=== PATIENT | male | born 1960 | race Caucasian/White ===

== ENCOUNTER → 2016-11-03 | Outpatient (CLI) | payer BC ==
[~2016-11-03] MED LIST: METH10TA2 PO
--- NOTE | 2016-11-03 15:41 | CARD ---
APPROVED REPORT EXAM: Two-dimensional and M-mode echocardiogram with Doppler and color Doppler. Other Information Quality : GoodHR: 67bpm Rhythm : NSR INDICATION HTN 2D DIMENSIONS RVDd3.2 (2.9-3.5cm)Left Atrium(2D)3.0 (1.6-4.0cm) IVSd1.0 (0.7-1.1cm)Aortic Root(2D)1.7 (2.0-3.7cm) LVDd5.0 (3.9-5.9cm)LVOT Diameter2.3 (1.8-2.4cm) PWd0.8 (0.7-1.1cm)LVDs4.0 (2.5-4.0cm) FS (%) 19.7 %SV47.9 ml LVEF(%)40.2 (>50%) Aortic Valve AoV Peak Everardo.89.2cm/sAoV VTI18.0cm AO Peak GR.3.2mmHgLVOT Peak Everardo.81.1cm/s AO Mean GR.2mmHgAVA (VMAX)3.77cm2 Mitral Valve MV E Rkjlqqab72.1cm/sMV E Peak Gr.3mmHg MV DECEL [id number] A Kvqhzgyv86.9cm/s MV E Mean Gr.1mmHgE/A Ratio0.9 MV A Tzmwrcii05mr Pulmonary Valve PV Peak Kgrqhola95.6cm/s Pulmonary Vein S1 Aujcjyxx39.2cm/sD2 Feavnorp88.0cm/s PVa ftonnqfr40kpvk LEFT VENTRICLE The left ventricle is normal size. There is normal left ventricular wall thickness. Left ventricle sy stolic function is mildly impaired. The Ejection Fraction is 45-50%. There is mild hypokinesis of the left ventricle. Mild hypokinesis of the proximal through mid anteroseptal and anterior kruse. Transm itral Doppler flow pattern is Grade I-abnormal relaxation pattern. No left ventricle thrombus noted o n this study. RIGHT VENTRICLE The right ventricle is normal size. There is normal right ventricular wall thickness. The right ventr icular systolic function is normal. ATRIA The left atrium size is normal. The right atrium size is normal. The interatrial septum is intact wit h no evidence for an atrial septal defect or patent foramen ovale as noted on 2-D or Doppler imaging. AORTIC VALVE The aortic valve is mildly thickened. The aortic valve is trileaflet. Doppler and Color Flow revealed no significant aortic regurgitation. There is no significant aortic valvular stenosis. MITRAL VALVE The mitral valve leaflets are thickened. There is no evidence of mitral valve prolapse. There is no m itral valve stenosis. Doppler and Color Flow revealed trace mitral regurgitation. TRICUSPID VALVE Doppler and Color Flow revealed no tricuspid valve regurgitation noted. There is no pulmonary hyperte nsion. PULMONIC VALVE Doppler and Color Flow revealed no pulmonic valvular regurgitation. There is no pulmonic valvular rehan nosis. GREAT VESSELS The aortic root is normal in size. The ascending aorta is normal in size. The pulmonary artery is nor mal. The IVC is normal in size and collapses >50% with inspiration. PERICARDIAL EFFUSION There is no evidence of significant pericardial effusion. Critical Notification Critical Value: No <Conclusion> Left ventricle systolic function is mildly impaired. The Ejection Fraction is 45-50%. There is mild hypokinesis of the left ventricle. Mild hypokinesis of the proximal through mid anteros eptal and anterior kruse. Due to mild LV dysfunction and wall motion abnormalities, stress testing was deferred. Recommend foll ow up with referring provider and consider cardiology referral.
== END | disposition home or self-care (01) ==
LOC: ECHO 13:07
PROVIDERS: ATTEND Family Medicine
DX: I10 Essential (primary) hypertension (principal); I34.0 Nonrheumatic mitral (valve) insufficiency
CPT/HCPCS: 93306

== ENCOUNTER 2016-11-08 16:15 | Inpatient (IN) | payer BC ==
[~2016-11-08] VITALS: Ht 167.6 cm; Wt 85.0 kg
[2016-11-08 19:35] VITALS: BP 124/77
[2016-11-08 22:12] LABS: BASO % 0 % (0-3); EOS % 4 % (0-3); HEMATOCRIT 41.1 % (39.0-53.0); HEMOGLOBIN 14.3 g/dL (13.0-17.5); LYMPH # 3.1 x10^3/uL (1.0-4.8); LYMPH % 38 % (24-48); MEAN CORPUSCULAR HEMOGLOBIN 31 pg (25-35); MEAN CORPUSCULAR HGB CONC 35 g/dL (31-37); MEAN CORPUSCULAR VOLUME 89 fL (79-100); MONO % 13 % (0-9); NEUT % 45 % (31-73); PLATELET COUNT 164 x10^3/uL (140-400); RED BLOOD COUNT 4.64 x10^6/uL (4.30-5.70); WHITE BLOOD COUNT 8.1 x10^3/uL (4.0-11.0)
[2016-11-08 22:29] LABS: ALBUMIN 3.3 g/dL (3.4-5.0); ALBUMIN/GLOBULIN RATIO 0.9 (1.0-1.7); CALCIUM 8.7 mg/dL (8.5-10.1); CREATININE 0.8 mg/dL (0.7-1.3); TOTAL BILIRUBIN 0.3 mg/dL (0.2-1.0); TOTAL PROTEIN 6.8 g/dL (6.4-8.2)
[2016-11-08 23:35] VITALS: BP 134/78
--- NOTE | 2016-11-09 01:38 | HP ---
ADMIT DATE: 11/08/2016 HISTORY OF PRESENT ILLNESS: This is a 56-year-old white male who was referred by Dr. Caballero who is his primary care physician. This patient is somewhat difficult historian. He did give his history predominantly, but this was also supplemented by his . However, this was punctuated by his concern that a heart problem may be formed and that he may not be able to return to work. He was also very concerned that whereas people for example his friends have been able to obtain disability for knee pain, but others have not been able to obtain disability for a heart problem. In any case, what he wanted to tell me was that he would get a sudden onset of severe pain in his abdomen. He pointed out his abdomen. He then would have an urge to defecate. He would go to the restroom. He would become diaphoretic. The pain at times would shift to the chest and when he became diaphoretic and the pain went to his chest, he had significant morbid fear of dying. He kept saying "I felt as though I was going to " . When I asked to explain it further, he was somewhat embarrassed that he was not able to truly explain what it is that you felt that he is going to . He complained of no shortness of breath or dizziness at that time. He simply was afraid of defecating because he felt this may lead to and this happened at least twice and the last one was a few days ago. He was then sent for a stress echo. The stress echo was not performed. An echocardiogram was performed and read by Dr. Keene. It was reported as showing mild hypokinesis of the proximal through mid anteroseptal and anterior kruse. The ejection fraction was 45-50%. Because of the significant already present wall motion abnormalities, a stress echo was not performed and the patient was referred back to his PCP who then referred the patient to me. He gives no history of hypertension or diabetes mellitus. He is not aware of elevated cholesterol. He has never smoked. He has been subjected to some secondary smoke. He is also very concerned that he has sudden onset of severe diaphoresis during which time he feels poorly. The last such episode was this morning. He does not think exertion brings on these symptoms. He does complain of retrosternal burning, which he attributes to GERD. He also has chest discomfort when doing some hard tasks such as working on a car. FAMILY HISTORY: Father at the age of 83. Mother of carcinoma. He has 2 brothers and one sister. One brother has cirrhosis of the liver. The only medication he takes is methadone. PHYSICAL EXAMINATION: GENERAL: He was alert, awake, and in no distress. VITAL SIGNS: He weighed 190 pounds. The heart rate was 80 per minute and regular. The blood pressure was 120/80. LUNGS: Clear. HEART: The heart sounds are normal with no murmur or gallop. ABDOMEN: Soft. EXTREMITIES: The carotids are palpable with no bruits. The distal pulses are palpable in the right leg, but not in the left. He states that he does have some claudication of the left leg. IMPRESSION: 1. Abdominal pain and chest pain associated with diaphoresis and a feeling of impending doom, rule out acute coronary syndrome. 2. Intermittent diaphoresis. 3. Peripheral vascular disease with possible claudication of the left leg. Since this patient has such significant symptoms that he has a very heightened sense of impending doom and since he had an episode of diaphoresis this morning, I thought that it would be better to hospitalize him and investigate him for underlying coronary artery disease and treat it. He states that a friend recently very suddenly of a myocardial infarction. We will thus do a myocardial perfusion imaging study tomorrow. CLEO GARCIA MD DR: CELIO/neha JOB#: [id number] / [id number]
--- NOTE | 2016-11-09 01:56 | ACF ---
Admit Criteria Forms Admit Criteria Forms Admit Criteria Forms CHEST PAIN Clinical Indications for Admission to Inpatient Care (Place 'X' for any and all applicable criteria): Admission is indicated for chest pain and ANY ONE of the following(1)(2)(3)(4)(5 ): [X ]I. Angina with acute coronary syndrome (Also use Myocardial Infarction or Angina guideline) [ ]II. Hemodynamic instability [ ]III. Angina needing acute intervention as indicated by ALL of the following( 11)(12): [ ]a) Unstable angina is present as indicated by angina that is ANY ONE of the following: [ ]i) New onset [ ]ii) Nocturnal [ ]iii) Prolonged at rest [ ]iv) Progressive [ ]b) Angina warrants acute intervention as indicated by ANY ONE of the following: [ ]i) Recurrent angina (e.g, not responding as previously to treatment) [ ]ii) Angina at rest or with low-level activities despite initial medical therapy [ ]iii) New or presumably new ST-segment depression on ECG [ ]iv) Signs or symptoms of heart failure (eg, dyspnea, pulmonary edema) [ ]v) New or worsening mitral regurgitation [ ]vi) Hemodynamic instability [ ]vii) Dangerous arrhythmia (eg, sustained ventricular tachycardia) [ ]viii) History of percutaneous coronary intervention within 6 months [ ]ix) History of coronary artery bypass graft surgery [ ]x) ADELINA risk score of 2 or greater[A] [ ]xi) History of Diabetes(14) [ ]xii) High-risk cardiac ischemia findings on noninvasive testing (e.g, echocardiogram, treadmill testing, nuclear scan) [ ]xiii) Chronic renal insufficiency (ie, estimated GFR less than 60 mL/min/1.732m) [ ]xiv) Left ventricular ejection fraction less than 40% [ ]IV. Evidence of MO (eg, cardiac biomarkers positive, ST-segment elevation on ECG) also use Myocardial Infarction Criteria Form. [ ]V. Pulmonary edema [ ]. Respiratory distress [ ]VII. Chest pain indicative of serious diagnosis other than coronary artery disease (eg, aortic dissection) [ ]VIII. Contraindications and/or Inappropriate clinical situations for Observational Care in patients with Chest Pain, when ANY ONE of the following is required: [ ]a) Patient with risk factor for pulmonary embolism, acute coronary syndrome and myocardial infarction (18) [ ]b) Patient with Pulmonary embolism require an average LOS of 4.3 days, therefore emergency department observation management is inappropriate 18,23 [ ]c) Painful condition/s in the elderly, have the highest rate of recidivism after emergency department observation management (10.8%) 20,21,22 [ ]d) Elevated cardiac biomarker requires intensive and exhaustive care (19) [ ]IX. General contraindications and/or Inappropriate clinical situations for Observational Care in patients with Chest Pain, when ANY ONE of the following is required: [ ]a) Prediction of prolongation of LOS based on ANY ONE of the following may be considered as a contraindication for observational care 2, 3, 4, 5, 6, 7, 8, 9, 10, 11 [ ]i) Age > 65 yrs. [ ]ii) Patient arriving by ambulance [ ]iii) Patient with high acuity [ ]iv) Patient requiring vital sign monitoring [ ]v) Patient on IV medication [ ]b) Systolic blood pressures 180mmHg 3,12 [ ]c) Patient with altered mental status including delirium and other alteration of consciousness, (3) [ ]d) Patient whose discharge disposition will be to a senior living home or rehabilitation home should not be managed in Emergency Department Observation Unit. CMS rule requires 3 days hospital stay before such placement. 3,13 [ ]e) Patient with failure to thrive due to broad array of etiologies 3,16,17 [ ]f) Inability to ambulate 3,14 Extended stay beyond goal length of stay may be needed for (1)(28): [ ]a) Specific condition diagnosed after evaluation (eg, pulmonary embolism, aortic dissection) [ ]b) Unstable angina [ ]c) Continued suspicion of acute coronary syndrome with inability to complete needed cardiac evaluation (eg, patient clinically unable to undergo stress testing) [ ]d) Myocardial infarction (Contents from ANGINA and CHEST PAIN clinical indications for admission to inpatient care have been integrated in this form) The original [employer] content created by [employer] has been revised. The portions of the content which have been revised are identified through the use of italic text or in bold, and [facility] has neither reviewed nor approved the modified material. All other unmodified content is copyright [employer]. Please see references footnoted in the original [facility] edition 2016 MANE DAVIS November 09, 2016 01:56
[2016-11-09 03:20] VITALS: BP 109/73
[2016-11-09 07:00] VITALS: BP 118/76
[2016-11-09 07:12] LABS: CHOLESTEROL/HDL RATIO 2.6
[2016-11-09] MEDS ORDERED: METH10TA2 PO (07:31)
[2016-11-09] MEDS ORDERED: REGADENOSON 0.4 MG/5 ML DISP.SYRIN. IV ONE (08:00)
--- NOTE | 2016-11-09 09:27 | RAD ---
Indication chest pain. PA and lateral views of the chest were obtained. No prior imaging is available. The heart and pulmonary vessels appear normal. The lungs are clear. There is no pleural fluid or pneumothorax. IMPRESSION: No acute finding in the chest
--- NOTE | 2016-11-09 10:40 | EKG ---
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
[2016-11-09] MEDS: IOHEXOL 300 MG/ML 75 ML VIAL IV ONE ×2 (13:00→15:15)
[2016-11-09] MEDS ORDERED: CONTRAST GIVEN MC PRN (13:00)
[2016-11-09] MEDS: IOHEXOL 240 MG/ML 50ML VIAL. PO ONE ×2 (13:00→14:15)
--- NOTE | 2016-11-09 14:42 | RAD ---
Indication claudication. Grayscale color Doppler and spectral imaging was performed. The examination was targeted to the major arteries of the lower extremities. On the right there is a normal triphasic waveform associated with the common femoral artery. Similar waveform is seen in the deep femoral. There is a normal triphasic waveform seen throughout the course of the superficial femoral artery which continues on into the popliteal artery. The posterior tibial artery proximally and distally has a normal triphasic waveform. The peroneal also is triphasic. The anterior tibial and dorsal pedal arteries are both triphasic. On the left there is a normal triphasic waveform associated with the common femoral artery with a similar waveform in the deep femoral. Normal triphasic waveform is seen throughout the course of the superficial femoral artery continuing on into the popliteal artery. Posterior tibial artery proximally and distally is triphasic. The peroneal also is triphasic. The anterior tibial and dorsal pedal arteries are both triphasic. IMPRESSION: No evidence of hemodynamically significant stenosis seen involving the major arteries of either lower extremity
[2016-11-09 15:00] VITALS: BP 119/79
--- NOTE | 2016-11-09 16:11 | RAD ---
CT abdomen and pelvis with IV contrast History: Severe abdominal pain, diaphoresis. Comparison: None. Technique: After administration of oral and intravenous contrast, 75 mL Omnipaque 300, helical CT of the abdomen and pelvis was performed from the lung bases through the ischial tuberosities. Axial, sagittal, and coronal reconstructions were obtained. One or more of the following individualized dose reduction techniques were utilized for the study: Automated exposure control Adjustment of mA and/or kV according to patient's size Use of iterative reconstruction technique. Findings: Liver, spleen, pancreas, gallbladder, and bilateral adrenal glands are unremarkable. Bilateral kidneys enhance symmetrically. There is no evidence of bowel obstruction. No free air or free fluid is identified in the abdomen or pelvis. Appendix appears within normal limits. Urinary bladder is unremarkable. Left femoral fixation hardware is incompletely seen. Impression: No acute abnormality identified in the abdomen or pelvis.
--- NOTE | 2016-11-09 18:55 | RAD ---
APPROVED REPORT Test Type: Pharmacological Stress Nurse/Tech: Nicky Patrick R.N. Test Indications: Chest pain. Cardiac History: Pt states that he has had two episodes of near syncope with diaphoresis, nausea wi thin the past few months. Medications: SEE EMR Medical History: SEE EMR Resting ECG: SR Resting Heart Rate: 71 bpm Resting Blood Pressure: 114/76mmHg Pretest Chest Pain: None Nurse/Tech Notes S1S2, lungs CTA, diminished in RUL, denied chest pain and SOA. Consent: The procedure was explained to the patient in lay terms. Informed consent was witnessed. Thang eout was entered into [employer]. History and Stress Test performed by Nicky Patrick R.N. Pharm. Details Pharmacologic stress testing was performed using 0.4mg per 5ml of regadenoson given intravenously ove r 7-10 seconds. Stress Symptoms Slightly SOA. POST EXERCISE Reason for Termination: Infusion complete Max HR: 103 bpm Max Blood Pressure: 123/59mmHg Blood Pressure response to exercise: Normal blood pressure response during stress. Heart Rate response to exercise: Normal Chest Pain: No. Arrhythmia: Yes. Multiple PAC's. ST Change: No. INTERPRETATION Stress EKG Conclusion: No acute changes were noted. Imaging Protocol IMAGE PROTOCOL: Rest Tc-99m/stress Tc-99m 1 day Rest: Stress: Viability: Radiopharm.Tc99m NshpkfsxfZb34s Sestamibi Rxns85gNx 31mCi Duration 15min. 12min. Img Date 11/09/2016 11/09/2016 Inj-Img Vscd84gnr. 60min. Rest Admin Site:IV - Left ForearmAdministrator:SANTIAGO Nunez, ARRT (R)(N) Stress Admin Site: IV - Left ForearmAdministrator: Von Adams, RT (R)(N) STRESS DATA End Diast. Vol.94.0mlAv. Heart Rate77.0bpm End Syst. Vol.45.0mlCO Index BSA0.0L/min Myocardial Ueov569.0gEject. Bfrsorib00.0% Stress Rates Pk. Fill Rate2.96EDV/secLVtime Pk. Fill 219.03msec Pk. Empty Rate3.54ESV/secLVtime Pk. Uygar533.67msec 06/14 Pk. Fill0.45EDV/sec Stress Scores Regional WT0.00Summed WT8.00 Regional WM0.00Summed WM6.00 LV Perf. Quant 17 Seg. SSS2.00 17 Seg. SRS0.00 17 Seg. SDS2.00 Stress Defect Extent (% LAD)0.00Rest Defect Extent (% LAD)0.00Rev. Defect Extent (% LAD)0.00 Stress Defect Extent (% LCX) 10.00Rest Defect Extent (% LCX)0.00Rev. Defect Extent (% LCX)10.00 Stress Defect Extent (% RCA)0.00Rest Defect Extent (% RCA)0.00Rev. Defect Extent (% RCA)0.00 Stress Defect Extent (% ASHLEY)2.60Rest Defect Extent (% ASHLEY)0.00Rev. Defect Extent (% ASHLEY)2.60 Conclusion 1. No electrocardiographic changes suggestive of myocardial ischemia with pharmacological stress 2. No perfusion defects to suggest myocardial ischemia or scar 3. Normal wall motion and wall thickening with an ejection fraction of 52$. 4. Scan indicates low risk for future carddiac events
[2016-11-09 20:00] VITALS: BP 127/76
--- NOTE | 2016-11-09 20:37 | PDOC ---
Provider Note Provider Note No further CP or diaphoresis. Because of his profound symptoms and abormal ECHO advised coronary arteriograms CLEO GARCIA MD November 09, 2016 20:37
[2016-11-09 22:21] VITALS: BP 118/73
[2016-11-10] MEDS ORDERED: oxyCODONE IR 5 MG TABLET PO PRN (01:00)
[2016-11-10] MEDS: METHADONE 10 MG TABLET. PO SCH ×2 (01:05→09:43)
[2016-11-10 03:11] VITALS: BP 114/76
[2016-11-10] MEDS ORDERED: HEPARIN for IV BOLUS 10,000 UNIT/10 ML VIAL. IART ONE (08:00)
[2016-11-10] MEDS ORDERED: NITROGLYCERIN 200 MCG/2 ML SYRINGE FOR CATH/VASC LAB. IART ONE (08:00)
[2016-11-10] MEDS ORDERED: MIDAZOLAM HCL/PF 2 MG/2 ML VIAL. IV ONE (08:00)
[2016-11-10] MEDS ORDERED: VERAPAMIL 5 MG/2 ML VIAL. IART ONE (08:00)
[2016-11-10] MEDS ORDERED: fentaNYL PF VIAL 100 MCG/2 ML VIAL IV ONE (08:00)
[2016-11-10] MEDS ORDERED: IOHEXOL 300 MG/ML 100ML VIAL. IART ONE (08:00)
[2016-11-10] MEDS ORDERED: LIDOCAINE 2% 20 ML VIAL. IJ ONE (08:00)
[2016-11-10] MEDS ORDERED: CONTRAST GIVEN MC PRN (08:15)
[2016-11-10] MEDS ORDERED: IOHEXOL 300 MG/ML 100ML VIAL. ONE (08:25)
[2016-11-10] MEDS ORDERED: HEPARIN for ARTERIAL LINE 1,500 ML ONE (08:25)
[2016-11-10] MEDS ORDERED: LIDOCAINE 2% 20 ML VIAL. ONE (08:25)
[2016-11-10 09:00] VITALS: BP 121/73
--- NOTE | 2016-11-10 09:32 | CARD ---
APPROVED REPORT Procedure(s) performed: Left heart cath, Coronary angiography, Left ventriculogram. HISTORY The patient is a 56 year-old male with a history of : hypertension. INDICATION The indication(s) include : chest pain, dyspnea, Patient is a 56 y.o male with mild LV dysfunction on echo who underwent a stress MPI which did not show any significant ischemia. Due to persistent chest pain, nausea and diaphoresis and risk factors, a cardiac catheterization was performed to definitely rule out coronary disease. . PROCEDURE NARRATIVE The patient was brought electively to the cardiac catheterization lab. A timeout was performed confi rming the patient's name, date of , procedure, and site of procedure. All necessary personnel w ere wearing the appropriate protective equipment and radiation monitor devices. After explaining the risks and benefits of the procedure and alternatives, informed consent was obtained. (See nursing no bronson for medications administered). The right wrist was sterilely prepped and draped in the usual fas hion. The right wrist was infiltrated with 1 mL of 2% lidocaine for subcutaneous anesthesia. A 6 Fr ench Terumo glide sheath was inserted into the right radial artery without difficulty. Right and lef t coronary angiography was performed using a 6Fr TIG 4.0 catheter. Left ventricular end diastolic pr essure was obtained with a pigtail catheter and pullback was performed after left ventriculography. All catheter exchanges and advancements were performed over a guidewire. At case completion the righ t radial sheath was removed and a Terumo radial band was applied with 13 ml of air. The patient tole rated the procedure well and there were no immediate complications. HEMODYNAMICS: LVEDP 8 mm Hg No gradient on LV to aortic pullback. LEFT VENTRICULOGRAM: EF 55% Anterobasal: Normal. Anterolateral: Normal Apical: Normal Diaphragmatic: Normal Posterobasal: Normal *No significant mitral regurgitation. CORONARY ANGIOGRAPHY: LM is a large caliber vessel with normal angiographic appearance. LAD is a large caliber vessel with a proximal 20-30% stenosis. Ramus is a moderate caliber vessel with normal angiographic appearance. LCx is a moderate caliber non-dominant vessel with normal angiographic appearance. OM1 is a moderate caliber vessel with normal angiographic appearance. RCA is a large caliber dominant vessel with normal angiographic appearance. RPDA and RPL are moderate caliber vessels with normal angiographic appearance. Conclusion 1. Minimal non-obstructive coronary disease. 2. Normal LV function. EF 55% 3. Normal filling pressures. Recommendations Aggressive Medical Therapy
[2016-11-10 11:00] VITALS: BP 117/76
--- NOTE | 2016-11-11 03:52 | DS ---
DATE OF DISCHARGE: 11/10/2016 HOSPITAL COURSE: This is a 56-year-old white male who was seen in the office, referred by Dr. Caballero. He was very concerned because he was having episodes of abdominal pain and chest pain and feeling as though he is going to . He would also become diaphoretic. He had become diaphoretic that morning. He had had echocardiogram done the previous week, which reported wall motion abnormalities in the anterior wall and septum. A stress echo that had been originally scheduled was cancelled. When I saw him in the office, he was very worried about the fact that he becomes diaphoretic and feels as though he is going to . Because of the wall motion abnormalities ____ proximal LAD obstruction, which is called the ____ he was hospitalized. He underwent myocardial perfusion imaging study the next day. The EKG was normal. The imaging showed no evidence of perfusion defects. Laboratory investigations: The hemoglobin was 14.3. Sodium 141, potassium 4, BUN 16, creatinine 0.8. The serial enzymes were negative. The total cholesterol was 142, triglycerides 60, LDL cholesterol 76 and HDL cholesterol was 54. His amylase was 31 and lipase was 112. Thus, his lipid profiles were normal. The situation was discussed with the patient and his . There was a discrepancy between the findings on the echocardiogram and the MPI. The patient was very, very concerned that he might have heart problem and that he could . Because of this, coronary arteriograms were scheduled and performed on the morning of 11/10. The coronary arteries were normal. The patient was very happy. I informed him most of the findings. He was discharged. He will follow up with his primary care physician, Dr. Caballero. No prescriptions were given. CLEO GARCIA MD DR: CELIO/neha JOB#: [id number] / [id number]
== END 2016-11-10 13:15 | disposition home or self-care (01) | DRG 287 ==
LOC: 2 SOUTH 19:15
PROVIDERS: ADMIT Specialist; ATTEND Specialist
PROC: 4A023N7 Measurement of Cardiac Sampling and Pressure, Left Heart, Percutaneous Approach (ICD-10-PCS; principal; 2016-11-10)
PROC: B2111ZZ Fluoroscopy of Multiple Coronary Arteries using Low Osmolar Contrast (ICD-10-PCS; 2016-11-10)
PROC: B2151ZZ Fluoroscopy of Left Heart using Low Osmolar Contrast (ICD-10-PCS; 2016-11-10)
DX: R07.9 Chest pain, unspecified (principal); K21.9 Gastro-esophageal reflux disease without esophagitis; R10.9 Unspecified abdominal pain; I73.9 Peripheral vascular disease, unspecified; Z80.9 Family history of malignant neoplasm, unspecified; Z84.89 Family history of other specified conditions
CPT/HCPCS: 36415; 71020; 74177; 78452; 80053; 80061; 82150; 83690; 84484; 85027; 93005; 93017; 93458; 93925; 96374; 96375; 96376; A9500; C1769; C1892; J2250; J2785; J3010; J3490; Q9966; Q9967

== ENCOUNTER 2018-09-29 23:05 | Emergency (ER) | payer BC ==
[~2018-09-29] VITALS: Ht 167.6 cm; Wt 86.2 kg
--- NOTE | 2018-09-29 23:29 | PHYS DOC ---
Adult General Chief Complaint Chief Complaint: ABDOMINAL PAIN HPI HPI Patient is a 58-year-old male who presents with complaint of severe epigastric/ lower chest wall pain that started approximately 2 hours prior to his arrival. He states this is absolutely the worst pain that he has ever had in his life, rating it at a 10 out of 10. Patient states that he is on both methadone and Percocet for chronic pain. He does admit to chronic constipation. Patient states that it feels like his chest is being ripped out. He denies any vomiting or diarrhea. He does admit to some nausea however. He denies any diaphoresis. He also denies any fever or cough. Patient states that nothing improves his symptoms. Review of Systems Review of Systems Constitutional: Denies fever or chills [] Respiratory: Denies cough or shortness of breath [] Cardiovascular: No additional information not addressed in HPI [] GI: Complains of epigastric abdominal pain with nausea. Denies vomiting or diarrhea [] Musculoskeletal: Denies back pain or joint pain [] All other systems were reviewed and found to be within normal limits, except as documented in this note. Current Medications Current Medications Current Medications Medications (Trade) Dose Ordered Sig/Misty Start Time Stop Time Status Last Admin Dose Admin Info (CONTRAST GIVEN -- Rx MONITORING) 1 each PRN DAILY PRN 09/30/18 00:45 10/02/18 00:44 Iohexol (Omnipaque 300 Mg/ml) 75 ml 1X ONCE 09/30/18 00:45 09/30/18 00:46 DC 09/30/18 00:50 75 ML Ketorolac Tromethamine (Toradol 30mg Vial) 30 mg 1X ONCE 09/29/18 23:45 09/29/18 23:46 DC 09/29/18 23:45 30 MG Ondansetron HCl (Zofran) 4 mg 1X ONCE 09/29/18 23:45 09/29/18 23:46 DC 09/29/18 23:45 4 MG Sodium Chloride 1,000 ml @ 1,000 mls/hr Q1H 09/29/18 23:45 09/30/18 00:44 DC 09/29/18 23:46 1,000 MLS/HR Allergies Allergies Allergies Coded Allergies Type Severity Reaction Last Updated Verified Penicillins Allergy Intermediate 11/09/16 Yes Physical Exam Physical Exam Constitutional: Well developed, well nourished, no acute distress, non-toxic appearance. [] HENT: Normocephalic, atraumatic, bilateral external ears normal, oropharynx moist, no oral exudates, nose normal. [] Eyes: PERRLA, EOMI, conjunctiva normal, no discharge. [] Neck: Normal range of motion, no tenderness, supple, no stridor. [] Cardiovascular: Regular rate and rhythm. There is reproducible lower chest wall tenderness around the lower anterior rib margins, bilaterally.[] Lungs & Thorax: Bilateral breath sounds clear to auscultation [] Abdomen: Bowel sounds normal, soft, with epigastric tenderness to palpation. [] Skin: Warm, dry, no erythema, no rash. [] Extremities: No tenderness, no cyanosis, no clubbing, ROM intact. [] Neurologic: Alert and oriented X 3, no focal deficits noted. [] Current Patient Data Vital Signs Vital Signs Date Time Temp Pulse Resp B/P (MAP) Pulse Ox O2 Delivery O2 Flow Rate FiO2 09/30/18 02:04 56 137/69 (91) 100 Room Air 09/29/18 23:12 98.2 20 98.2 Lab Values Laboratory Tests Test 09/29/18 23:25 09/30/18 00:05 White Blood Count 8.2 x10^3/uL (4.0-11.0) Red Blood Count 4.56 x10^6/uL (4.30-5.70) Hemoglobin 13.8 g/dL (13.0-17.5) Hematocrit 40.1 % (39.0-53.0) Mean Corpuscular Volume 88 fL (79-100) Mean Corpuscular Hemoglobin 30 pg (25-35) Mean Corpuscular Hemoglobin Concent 34 g/dL (31-37) Red Cell Distribution Width 12.9 % (11.5-14.5) Platelet Count 181 x10^3/uL (140-400) Neutrophils (%) (Auto) 48 % (31-73) Lymphocytes (%) (Auto) 35 % (24-48) Monocytes (%) (Auto) 14 % (0-9) H Eosinophils (%) (Auto) 2 % (0-3) Basophils (%) (Auto) 0 % (0-3) Neutrophils # (Auto) 3.9 x10^3uL (1.8-7.7) Lymphocytes # (Auto) 2.9 x10^3/uL (1.0-4.8) Monocytes # (Auto) 1.2 x10^3/uL (0.0-1.1) H Eosinophils # (Auto) 0.2 x10^3/uL (0.0-0.7) Basophils # (Auto) 0.0 x10^3/uL (0.0-0.2) Sodium Level 137 mmol/L (136-145) Potassium Level 3.5 mmol/L (3.5-5.1) Chloride Level 99 mmol/L (98-107) Carbon Dioxide Level 28 mmol/L (21-32) Anion Gap 10 (6-14) Blood Urea Nitrogen 16 mg/dL (8-26) Creatinine 0.9 mg/dL (0.7-1.3) Estimated GFR (Cockcroft-Gault) 86.7 BUN/Creatinine Ratio 18 (6-20) Glucose Level 138 mg/dL (70-99) H Calcium Level 9.3 mg/dL (8.5-10.1) Total Bilirubin 0.5 mg/dL (0.2-1.0) Aspartate Amino Transferase (AST) 35 U/L (15-37) Alanine Aminotransferase (ALT) 48 U/L (16-63) Alkaline Phosphatase 60 U/L (46-116) Troponin I Quantitative < 0.017 ng/mL (0.000-0.055) Total Protein 7.4 g/dL (6.4-8.2) Albumin 3.7 g/dL (3.4-5.0) Albumin/Globulin Ratio 1.0 (1.0-1.7) Lipase 156 U/L (73-393) Urine Collection Type Unknown Urine Color Yellow Urine Clarity Cloudy Urine pH 7.5 Urine Specific [place] 1.020 Urine Protein Negative mg/dL (NEG-TRACE) Urine Glucose (UA) Negative mg/dL (NEG) Urine Ketones (Stick) Negative mg/dL (NEG) Urine Blood Negative (NEG) Urine Nitrite Negative (NEG) Urine Bilirubin Negative (NEG) Urine Urobilinogen Dipstick 1.0 mg/dL (0.2 mg/dL) Urine Leukocyte Esterase Negative (NEG) Urine RBC Occ /HPF (0-2) Urine WBC 0 /HPF (0-4) Urine Squamous Epithelial Cells Occ /LPF Urine Amorphous Sediment Present /HPF Urine Bacteria 0 /HPF (0-FEW) Urine Mucus Slight /LPF Urine Opiates Screen Neg (NEG) Urine Methadone Screen Pos (NEG) Urine Barbiturates Neg (NEG) Urine Phencyclidine Screen Neg (NEG) Urine Amphetamine/Methamphetamine Neg (NEG) Urine Benzodiazepines Screen Neg (NEG) Urine Cocaine Screen Neg (NEG) Urine Cannabinoids Screen Neg (NEG) Urine Ethyl Alcohol Neg (NEG) Laboratory Tests 09/29/18 23:25 Laboratory Tests 09/29/18 23:25 EKG EKG [] Interpretation Time: EKG demonstrates sinus rhythm with rate of 59. There are no significant ST segment abnormalities. Radiology/Procedures Radiology/Procedures [] Course & Med Decision Making Course & Med Decision Making Pertinent Labs and Imaging studies reviewed. (See chart for details) [] Dragon Disclaimer Dragon Disclaimer This electronic medical record was generated, in whole or in part, using a voice recognition dictation system. Departure Departure Impression: Primary Impression: Epigastric abdominal pain Disposition: HOME, SELF-CARE Condition: STABLE Referrals: DENIS LOPEZ MD (PCP) Patient Instructions: Abdominal Pain RAQUEL LIN Jr. DO Sep 29, 2018 23:29
[2018-09-29 23:33] LABS: BASO % 0 % (0-3); EOS # 0.2 x10^3/uL (0.0-0.7); EOS % 2 % (0-3); HEMATOCRIT 40.1 % (39.0-53.0); HEMOGLOBIN 13.8 g/dL (13.0-17.5); LYMPH # 2.9 x10^3/uL (1.0-4.8); LYMPH % 35 % (24-48); MEAN CORPUSCULAR HEMOGLOBIN 30 pg (25-35); MEAN CORPUSCULAR HGB CONC 34 g/dL (31-37); MEAN CORPUSCULAR VOLUME 88 fL (79-100); MONO # 1.2 x10^3/uL (0.0-1.1); MONO % 14 % (0-9); NEUT # 3.9 x10^3uL (1.8-7.7); NEUT % 48 % (31-73); PLATELET COUNT 181 x10^3/uL (140-400); RED BLOOD COUNT 4.56 x10^6/uL (4.30-5.70); RED CELL DISTRIBUTION WIDTH 12.9 % (11.5-14.5); WHITE BLOOD COUNT 8.2 x10^3/uL (4.0-11.0)
[2018-09-29 23:44] LABS: CALCIUM 9.3 mg/dL (8.5-10.1); CREATININE 0.9 mg/dL (0.7-1.3); GFR 86.7; POTASSIUM 3.5 mmol/L (3.5-5.1)
[2018-09-29] MEDS ORDERED: IV NORMAL SALINE 1000ML BAG 1,000 ML IV SCH (23:45)
[2018-09-29] MEDS ORDERED: KETOROLAC 30 MG/ML VIAL. IV ONE (23:45)
[2018-09-29] MEDS ORDERED: ONDANSETRON PF 4 MG/2 ML VIAL. IV ONE (23:45)
[2018-09-29 23:53] LABS: ALBUMIN 3.7 g/dL (3.4-5.0); TOTAL BILIRUBIN 0.5 mg/dL (0.2-1.0); TOTAL PROTEIN 7.4 g/dL (6.4-8.2)
[2018-09-30 00:12] LABS: BILIRUBIN,URINE NEGATIVE (NEG); CLARITY,URINE CLOUDY; COLOR,URINE YELLOW; NITRITE,URINE NEGATIVE (NEG); PH,URINE 7.5; PROTEIN,URINE NEGATIVE (NEG-TRACE)
[2018-09-30 00:21] LABS: AMPHETAMINE/METHAMPHETAMINE NEG (NEG); BARBITURATES NEG (NEG); BENZODIAZEPINES NEG (NEG); CANNABINOIDS NEG (NEG); COCAINE NEG (NEG); METHADONE POS (NEG); OPIATES NEG (NEG); PHENCYCLIDINE NEG (NEG)
[2018-09-30 00:24] LABS: AMORPHOUS SEDIMENT,UR PRESENT /HPF; BACTERIA,URINE 0 /HPF (0-FEW); RBC,URINE OCC /HPF (0-2); SQUAMOUS EPITHELIAL CELL,UR OCC /LPF; WBC,URINE 0 /HPF (0-4)
[2018-09-30] MEDS ORDERED: CONTRAST GIVEN. MC PRN (00:45)
[2018-09-30] MEDS ORDERED: IOHEXOL 300 MG/ML 100ML VIAL. IV ONE (00:45)
--- NOTE | 2018-09-30 01:36 | RAD ---
INDICATION: upper abd pain, OMNI 300, 75ml COMPARISON: November 09, 2016 TECHNIQUE: Axial CT images obtained through the abdomen and pelvis with contrast. One or more of the following individualized dose reduction techniques were utilized for this examination: 1. Automated exposure control; 2. Adjustment of the mA and/or kV according to patient size; 3. Use of iterative reconstruction technique. FINDINGS: 3 mm nodule left lung base anteriorly. Abdominal aorta is not aneurysmal. Small fat-containing right inguinal hernia. No intrahepatic bile duct dilation. Gallbladder is somewhat distended at time of exam. No peripancreatic fluid collection. Splenic calcified granulomas. Urinary bladder is partially distended. No left-sided hydronephrosis. No right-sided hydronephrosis. There are some calcifications bilateral pelvis. Postoperative changes left proximal femur with hardware seen. Small fat-containing umbilical hernia. Appendix not well seen. No dilated loops of bowel to suggest obstruction. Degenerative changes the spine with multilevel central canal and neural foraminal stenosis. IMPRESSION: 1. No evidence of bowel obstruction. 2. The gallbladder somewhat distended. Would correlate with symptoms in the region and if the patient has symptoms ultrasound could be helpful to further evaluate for gallbladder disease. 3. Nodule at left lung base. Fleischner Society recommendations for solitary solid lung nodule follow up.: In a low risk patient: <6mm - No follow up required. 6-8mm - 6-[address], then CT at 18-24 months. >8mm - CT at 3 months, PET/CT or tissue sampling. In a high risk patient (history of smoking or other known risk factors): <6mm - Follow up CT at 12 months. 6-8mm - 6-[address], then CT at 18-24 months. >8mm - CT at 3 months, PET/CT or tissue sampling. Fleischner Society recommendations for multiple solid lung nodule follow up.: In a low risk patient: <6mm - No follow up required. 6-8mm - 3-[address], then CT at 18-24 months. >8mm - CT at 3-6 months, then at 18-24 months. PET/CT or tissue sampling based on most suspicious nodule. In a high risk patient (history of smoking or other known risk factors): <6mm - Follow up CT at 12 months. 6-8mm - 3-[address], then CT at 18-24 months. >8mm - CT at 3-6 months, PET/CT or tissue sampling option based on most suspicious nodule. Electronically signed by: Wiley Barlow MD (09/30/2018 1:33 AM) [facility]
[2018-09-30 02:04] VITALS: BP 137/69
--- NOTE | 2018-09-30 08:38 | RAD ---
PORTABLE CHEST 1V Clinical History: lower chest/epigastric pain Technique: AP view of the chest was obtained at 09/29/2018 11:18 PM. Comparison: November 08, 2016. Findings: The cardiomediastinal silhouette is normal. The pulmonary vasculature is normal. The lungs and pleural margins are clear. Impression: No evidence of an acute cardiopulmonary process. Electronically signed by: Horace Martínez III, MD (09/30/2018 8:35 AM) [facility]
--- NOTE | 2018-09-30 12:29 | EKG ---
[facility] [address] [place] [address] Test Date: 2018-09-29 Test Time: 23:12:07 Pat Name: CUCA FINNEY Department: Room: Gender: Male Protection Analyst: CHUYITA : 1960 Requested By: RAQUEL LIN Order Number: [id number] Reading MD: Skip Keene MD Measurements Intervals [place] Rate: 59 P: -24 WA: 156 QRS: 13 QRSD: 98 T: 36 QT: 410 QTc: 410 Interpretive Statements SINUS RHYTHM NON-SPECIFIC ST/T CHANGES Electronically Signed On 10-05-2018 14:47:09 CDT by Skip Keene MD
== END 2018-09-30 02:50 | disposition home or self-care (01) ==
LOC: ER 23:05
DX: R10.13 Epigastric pain (principal); R07.89 Other chest pain; G89.29 Other chronic pain; R11.0 Nausea; Z88.0 Allergy status to penicillin
CPT/HCPCS: 36415; 71045; 74177; 80053; 80307; 81001; 83690; 84484; 85025; 93005; 96374; 96375; 99285; J1885; J2405; J7030; Q9967

== ENCOUNTER 2020-07-16 12:30 | Inpatient (IN) | payer BC, OTHER ==
[~2020-07-16] VITALS: Ht 167.6 cm; Wt 85.5 kg
[2020-07-16] MEDS ORDERED: MORPHINE SULFATE 2 MG/ML VIAL. IV/SQ PRN (13:15)
[2020-07-16] MEDS ORDERED: NITROGLYCERIN SUBLINGUAL 0.4 MG BOTTLE OF 25. SL PRN (13:15)
[2020-07-16] MEDS ORDERED: ASPIRIN 325 MG TABLET PO ONE (13:15)
--- NOTE | 2020-07-16 13:18 | PHYS DOC ---
Past Medical History Past Medical History: Constipation, Other Additional Past Medical Histor: "leg cramps" Past Surgical History: No Surgical History Additional Past Surgical Histo: poor historian Smoking Status: Never Smoker Alcohol Use: None Drug Use: None General Adult EDM: Chief Complaint: ABNORMAL LABS HPI: HPI: Patient is a 60 year old male with history of constipation, tobacco chewing, chronic pain currently on methadone who presents to the ED today with multiple complaints. Patient states he had lab work done at the PCPs office on Monday and was called today and informed he needs to come to the ED because he has elevated liver enzymes and could have liver disease. Patient states he has had jaundice to his skin, itching throughout his body and eyes for 1 week, bilateral upper abdominal pain rated as mild and intermittent, right chest pain rated as mild and intermittent for 1 week, bloody stools, blood in his urine, symptoms began a week ago. Denies any exacerbating or relieving factors to his symptoms. He is in the ED with the son who is doing most of the speaking. Denies being on any blood thinners. Review of Systems: Review of Systems: Constitutional: Denies fever or chills. [] Eyes: Denies change in visual acuity. [] HENT: Denies nasal congestion or sore throat. [] Respiratory: Denies cough or shortness of breath. [] Cardiovascular: Reports chest pain. GI: Reports abdominal pain, bloody stools, denies nausea, vomiting, diarrhea. [] : Reports blood in his urine. Denies dysuria. [] Musculoskeletal: Denies back pain or joint pain. [] Integument: Reports itching Neurologic: Denies headache, focal weakness or sensory changes. [] Psychiatric: Denies depression or anxiety. [] Heart Score: Risk Factors: Risk Factors: DM, Current or recent (<one month) smoker, HTN, HLP, family history of CAD, obesity. Risk Scores: Score 0 - 3: 2.5% MACE over next 6 weeks - Discharge Home Score 4 - 6: 20.3% MACE over next 6 weeks - Admit for Clinical Observation Score 7 - 10: 72.7% MACE over next 6 weeks - Early Invasive Strategies Current Medications: Current Medications Medications (Trade) Dose Ordered Sig/Misty Start Time Stop Time Status Last Admin Dose Admin Aspirin (Sheila Aspirin) 325 mg 1X ONCE 07/16/20 13:15 07/16/20 13:16 Morphine Sulfate (Morphine Sulfate) 2 mg PRN Q15MIN PRN 07/16/20 13:15 07/17/20 13:14 Nitroglycerin (Nitrostat) 0.4 mg PRN Q5MIN PRN 07/16/20 13:15 07/17/20 13:14 Allergies: Allergies: Allergies Coded Allergies Type Severity Reaction Last Updated Verified Penicillins Allergy Intermediate 11/09/16 Yes Physical Exam: PE: Constitutional: Well developed, well nourished, no acute distress, non-toxic marylou earance. [] HENT: Normocephalic, atraumatic, bilateral external ears normal, oropharynx moist, no oral exudates, nose normal. [] Eyes: PERRLA, EOMI, slight bilateral sclera icteric, no discharge. [] Neck: Normal range of motion, no tenderness, supple, no stridor. [] Cardiovascular:Heart rate regular rhythm, no murmur [] Lungs & Thorax: Bilateral breath sounds clear to auscultation [] Abdomen: Bowel sounds normal, soft, diffuse BUA tenderness with negative willson's sign, no masses, no pulsatile masses. [] Skin: Jaundice noted on the face and upper tarso, patient is itching, dry skin Back: No tenderness, no CVA tenderness. [] Extremities: No tenderness, no cyanosis, no clubbing, ROM intact, no edema. [] Neurologic: Alert and oriented X 3, normal motor function, normal sensory function, no focal deficits noted. [] Psychologic: Affect normal, judgement normal, mood normal. [] EKG: EK interpreted by Dr. Dan sinus rhythm HR 58 no STEMI [address] Dan sinus rhythm HR 56 no STEMI Radiology/Procedures: Radiology/Procedures: []PROCEDURE: PORTABLE CHEST 1V Single view of the chest. 07/16/2020 1:05 PM Indication: Reason: chest pain / Spl. Instructions: / History: Comparison: Chest radiograph September 29, 2018 Findings: No pneumothorax, pleural effusion, or acute appearing focal infiltrate is seen. Diffuse interstitial coarsening is similar to comparison study. Heart size appears top normal given differences of inspiration portable technique. No acute osseous changes are identified. IMPRESSION: Mild diffuse interstitial thickening, similar to comparison exam. Electronically signed by: Tommie Zamarripa MD (07/16/2020 1:23 PM) [id number] DICTATED and SIGNED BY: TOMMIE ZAMARRIPA MD DATE: 07/16/20 [id number] Course & Med Decision Making: Course & Med Decision Making Pertinent Labs and Imaging studies reviewed. (See chart for details) This is a 60-year-old male patient presenting to the ED today with multiple complaints including chest pain, abdominal pain, jaundice his eyes and skin, itching. Also complaining of abdominal pain, blood in his urine, blood in his stools, symptoms for a week. Was seen by the PCP on Monday and was called today and informed his liver enzymes were elevated. CBC with no acute findings, CMP with bilirubin of 6.3, AST 87, ALT 130, ALK 247, lipase 86. Urine noted for large amount of bilirubin. CT of the abdomen and pelvis as well as limited right upper quadrant ultrasound were both noted for dilated gallbladder with dilatation of common bile duct. I spoke to Dr. Patten who follow-up with the patient I spoke to Dr. Fragoso who accepted patient for admission Jinny Disclaimer: Jinny Disclaimer: This electronic medical record was generated, in whole or in part, using a voice recognition dictation system. Departure Departure Impression: Primary Impression: Choledocholithiasis Additional Impressions: Elevated bilirubin Transaminitis Disposition: ADMITTED INPT THIS HOSP Condition: STABLE Referrals: DENIS LOPEZ MD (PCP) RILEY GERARD APRN Jul 16, 2020 13:18
[2020-07-16 13:22] LABS: BASO % 0 % (0-3); EOS # 0.2 x10^3/uL (0.0-0.7); EOS % 2 % (0-3); HEMATOCRIT 44.1 % (39.0-53.0); HEMOGLOBIN 14.8 g/dL (13.0-17.5); LYMPH # 1.2 x10^3/uL (1.0-4.8); LYMPH % 18 % (24-48); MEAN CORPUSCULAR HEMOGLOBIN 31 pg (25-35); MEAN CORPUSCULAR HGB CONC 34 g/dL (31-37); MEAN CORPUSCULAR VOLUME 91 fL (79-100); MONO # 1.1 x10^3/uL (0.0-1.1); MONO % 18 % (0-9); NEUT % 62 % (31-73); PLATELET COUNT 151 x10^3/uL (140-400); RED BLOOD COUNT 4.83 x10^6/uL (4.30-5.70); WHITE BLOOD COUNT 6.4 x10^3/uL (4.0-11.0)
--- NOTE | 2020-07-16 13:25 | RAD ---
Single view of the chest. 07/16/2020 1:05 PM Indication: Reason: chest pain / Spl. Instructions: / History: Comparison: Chest radiograph September 29, 2018 Findings: No pneumothorax, pleural effusion, or acute appearing focal infiltrate is seen. Diffuse int erstitial coarsening is similar to comparison study. Heart size appears top normal given differences of inspiration portable technique. No acute osseous changes are identified. IMPRESSION: Mild diffuse interstitial thickening, similar to comparison exam. Electronically signed by: Tommie Segovia MD (07/16/2020 1:23 PM) [id number]
[2020-07-16] MEDS ORDERED: diphenhydrAMINE 50 MG/ML VIAL IVP ONE (13:45)
[2020-07-16 14:17] LABS: CALCIUM 9.2 mg/dL (8.5-10.1); CREATININE 0.7 mg/dL (0.7-1.3); POTASSIUM 4.4 mmol/L (3.5-5.1)
[2020-07-16 14:23] LABS: ALBUMIN 3.5 g/dL (3.4-5.0); ALBUMIN/GLOBULIN RATIO 0.9 (1.0-1.7); MAGNESIUM 2.2 mg/dL (1.8-2.4); TOTAL BILIRUBIN 6.3 mg/dL (0.2-1.0); TOTAL PROTEIN 7.3 g/dL (6.4-8.2)
[2020-07-16] MEDS ORDERED: CONTRAST GIVEN. MC PRN (14:30)
[2020-07-16] MEDS ORDERED: IOHEXOL 300 MG/ML 100ML VIAL. IV ONE (14:30)
--- NOTE | 2020-07-16 15:07 | RAD ---
PQRS Compliance Statement: One or more of the following individualized dose reduction techniques were utilized for this examinat ion: 1. Automated exposure control 2. Adjustment of the mA and/or kV according to patient size 3. Use of iterative reconstruction technique CT abdomen/pelvis with contrast 07/16/2020 2:21 PM INDICATION: Abdominal pain, rectal bleeding and jaundice. COMPARISON: CT abdomen/pelvis 09/30/2018 TECHNIQUE: Multiple axial CT images of the abdomen and pelvis were obtained after the intravenous adm inistration of nonionic contrast. Coronal and sagittal reformats are provided. FINDINGS: There is subsegmental atelectasis at the lung bases. Mild coronary artery vascular calcifications. Hy poattenuation of the hepatic parenchyma is suggestive of hepatic steatosis. Gallbladder is distended measuring 4.5 cm in diameter. Calcifications within the spleen likely represent sequela prior granulo matous exposure. Adrenal glands are normal in appearance. Mild fatty atrophy of the pancreas. Common bile duct is dilated measuring 10 mm, previously measuring up to 4 mm. No dilatation of main pancreatic duct. The abdominal aorta is normal in course and caliber. There are no pathologically enlarged lymph nodes in the abdomen and pelvis. There is no abdominal free fluid. There is no free intraperitoneal air. The kidneys enhance symmetrically. There is no suspicious renal mass. There is no hydronephrosis. The re are no suspected calculi within the kidneys, ureters or urinary bladder. Urinary bladder is within normal limits given degree of distention. Prostate and seminal vesicles are normal in appearance. There are multifocal areas of under distention involving the colon, limiting evaluation. Appendix is normal in appearance. No bowel obstruction or inflammation. No suspicious osseous abnormality is identified. IMPRESSION: 1. There is dilatation of the common bile duct without definite obstructive etiology identified on th is examination. Consideration may be on for sludge, stricture or choledocholithiasis. Further charact erization with MRCP could be of benefit. 2. Mild distention of the gallbladder without calcified gallstones. 3. Mild bibasilar subsegmental atelectasis. Electronically signed by: Maureen Egan MD (07/16/2020 3:04 PM) [facility]
[2020-07-16 15:58] LABS: BILIRUBIN,URINE LARGE (NEG); CLARITY,URINE CLEAR; COLOR,URINE AMBER; NITRITE,URINE NEGATIVE (NEG); PH,URINE 6.5 (<5.0-8.0); PROTEIN,URINE NEGATIVE (NEG-TRACE); UROBILINOGEN,URINE 0.2 mg/dL (0.2 mg/dL)
[2020-07-16] MEDS ORDERED: IV NORMAL SALINE 1000ML BAG 1,000 ML IV ONE ×3 (16:00→18:30)
[2020-07-16 16:03] LABS: BARBITURATES NEG (NEG); BENZODIAZEPINES NEG (NEG); CANNABINOIDS NEG (NEG); COCAINE NEG (NEG); METHADONE POS (NEG); OPIATES POS (NEG); PHENCYCLIDINE NEG (NEG)
[2020-07-16 16:05] LABS: BACTERIA,URINE 0 /HPF (0-FEW); RBC,URINE 0 /HPF (0-2); WBC,URINE OCC /HPF (0-4)
[2020-07-16 16:12] LABS: AMPHETAMINE/METHAMPHETAMINE NEG (NEG)
--- NOTE | 2020-07-16 16:38 | RAD ---
INDICATION : Reason: RUQ pain gallstones on Ct / Spl. Instructions: / History: COMPARISON: CT from earlier same day TECHNIQUE: Multiple ultrasound images obtained through the abdomen in grayscale and color. FINDINGS: Liver: Echogenic Gallbladder: Dilated with echogenic material within. There may be some vascular flow within the lumen . IVC: Largely obscured by overlying structures. Common Bile Duct: 9 mm Pancreas: Largely obscured by overlying structures. Right Kidney: No hydronephrosis. IMPRESSION: * Dilated gallbladder is identified. Would correlate for possible causes such as hydrops. Within th e gallbladder lumen there is a large amount of echogenic material seen with some possible internal va scularity. This could be secondary to a large amount of gallbladder sludge but would consider obtaini ng a nonemergent MRI with and without contrast to ensure that there is not a solid lesion within the gallbladder contributing. * Dilation of the common bile duct. * Liver is echogenic. Nonspecific but can be seen with fatty infiltration. Electronically signed by: Wiley Barlow MD (07/16/2020 4:36 PM) [id number]
[2020-07-16] MEDS ORDERED: hydrOXYzine 25 MG TABLET PO STA (17:08)
[2020-07-16] MEDS ORDERED: CHOLESTYRAMINE/ASPARTAME 4 GM PACKET PO PRN (17:30)
--- NOTE | 2020-07-16 17:37 | PDOC1 ---
History and Physical Date of Admission Date of Admission DATE: 07/16/20 TIME: 17:33 Identification/Chief Complaint Chief Complaint Abdominal pain, jaundice, abnormal labs Source Source: Chart review, Patient History of Present Illness History of Present Illness Patient is a 60-year-old male with past medical history chronic pain on methadone, constipation, who was sent to the ER for further evaluation after he was noted to had elevated liver enzymes. She reports intermittent upper abdominal pain, generalized pruritus, yellowing of his skin and sclera over the past week. He was seen by his PCP for the symptoms 2 days ago and told to report to the ER for his transaminitis and hyperbilirubinemia. Imaging obtained in the ED showed dilated gallbladder with large amount of gallbladder sludge and dilated common bile duct. General surgery was contacted by ED, and patient was recommended to be NPO after midnight for possible surgical procedure. Patient also notes blood in his stool and blood in his urine over the past week. UA on admission is negative for blood but does show large bilirubin. Hemoglobin within normal limits. Will admit patient for further medical management. Past Medical History Past Medical History Chronic pain on methadone, constipation Past Surgical History Past Surgical History Left femur surgery Family History Family History Cancer Social History Smoke: No ALCOHOL: occassional Drugs: None Current Medications Current Medications Current Medications Aspirin (Sheila Aspirin) 325 mg 1X ONCE PO Last administered on 07/16/20at 13:39; Start 07/16/20 at 13:15; Stop 07/16/20 at 13:16; Status DC Nitroglycerin (Nitrostat) 0.4 mg PRN Q5MIN PRN SL CP RATING > 1/10 Last administered on 07/16/20at 13:40; Start 07/16/20 at 13:15; Stop 07/17/20 at 13:14 Morphine Sulfate (Morphine Sulfate) 2 mg PRN Q15MIN PRN IV/SQ PAIN GREATER THAN 3/10 Last administered on 07/16/20at 13:41; Start 07/16/20 at 13:15; Stop 07/17/20 at 13:14 Diphenhydramine HCl (Benadryl) 25 mg 1X ONCE IVP Last administered on 07/16/20at 13:39; Start 07/16/20 at 13:45; Stop 07/16/20 at 13:46; Status DC Iohexol (Omnipaque 300 Mg/ml) 75 ml 1X ONCE IV Last administered on 07/16/20at 14:37; Start 07/16/20 at 14:30; Stop 07/16/20 at 14:31; Status DC Info (CONTRAST GIVEN -- Rx MONITORING) 1 each PRN DAILY PRN MC SEE COMMENTS; Start 07/16/20 at 14:30; Stop 07/18/20 at 14:29 Sodium Chloride 1,000 ml @ 1,000 mls/hr 1X ONCE IV Last administered on 07/16/20at 16:01; Start 07/16/20 at 16:00; Stop 07/16/20 at 16:59; Status DC Hydroxyzine HCl (Atarax) 25 mg 1X STAT PO ; Start 07/16/20 at 17:08; Stop 07/16/20 at 17:10; Status DC Sodium Chloride 1,000 ml @ 1,000 mls/hr 1X ONCE IV ; Start 07/16/20 at 17:15; Stop 07/16/20 at 18:14 Active Scripts Active Reported Methadone Hcl 10 Mg Tablet 10 Mg PO BID Allergies Allergies: Coded Allergies: Penicillins (Verified Allergy, Intermediate, 11/09/16) ROS Review of System GENERAL: No history of weight change, weakness or fevers. SKIN: Generalized pruritus. Yellowing of the skin. No bruising, hair changes or rashes. EYES: Yellowing of the eyes. No blurred, double or loss of vision. NOSE AND THROAT: No history of nosebleeds, hoarseness or sore throat. HEART: Denies chest pain, denies palpitations. LUNGS: Denies cough, hemoptysis, wheezing or shortness of breath. GASTROINTESTINAL: Abdominal pain. Denies nausea or vomiting.. GENITOURINARY: Denies dysuria, frequency, urgency, hematuria. NEUROLOGIC: Denies history of numbness, tingling, tremor or weakness. PSYCHIATRIC: Denies anxiety, denies depression. ENDOCRINE: No history of heat or cold intolerance, polyuria or polydipsia. EXTREMITIES: Denies muscle weakness, joint pain, pain on walking or stiffness. Physical Exam Physical Exam General: Alert, Oriented X3, Cooperative, mild distress HEENT: Icteric sclera. PERRLA, EOMI Lungs: Clear to auscultation, Normal air movement Heart: RRR, no murmurs Cardiovascular: S1, S2 Abdomen: Epigastric and right upper quadrant abdominal tenderness. Normal bowel sounds, Soft. Extremities: No clubbing, No cyanosis Skin: Jaundiced. No rashes, No significant lesion Neuro: Normal speech, Normal tone, Sensation intact Psych/Mental Status: Mental status NL, Mood NL Vitals Vitals Vital Signs Date Time Temp Pulse Resp B/P (MAP) Pulse Ox O2 Delivery O2 Flow Rate FiO2 07/16/20 16:34 57 137/65 (89) 95 Room Air 07/16/20 13:41 18 07/16/20 12:40 98.7 98.7 Labs Labs Laboratory Tests Test 07/16/20 13:10 07/16/20 13:50 07/16/20 15:30 White Blood Count 6.4 x10^3/uL (4.0-11.0) Red Blood Count 4.83 x10^6/uL (4.30-5.70) Hemoglobin 14.8 g/dL (13.0-17.5) Hematocrit 44.1 % (39.0-53.0) Mean Corpuscular Volume 91 fL (79-100) Mean Corpuscular Hemoglobin 31 pg (25-35) Mean Corpuscular Hemoglobin Concent 34 g/dL (31-37) Red Cell Distribution Width 14.0 % (11.5-14.5) Platelet Count 151 x10^3/uL (140-400) Neutrophils (%) (Auto) 62 % (31-73) Lymphocytes (%) (Auto) 18 % (24-48) Monocytes (%) (Auto) 18 % (0-9) Eosinophils (%) (Auto) 2 % (0-3) Basophils (%) (Auto) 0 % (0-3) Neutrophils # (Auto) 4.0 x10^3/uL (1.8-7.7) Lymphocytes # (Auto) 1.2 x10^3/uL (1.0-4.8) Monocytes # (Auto) 1.1 x10^3/uL (0.0-1.1) Eosinophils # (Auto) 0.2 x10^3/uL (0.0-0.7) Basophils # (Auto) 0.0 x10^3/uL (0.0-0.2) D-Dimer ([place]) 0.34 ug/mlFEU (0.00-0.50) Sodium Level 134 mmol/L (136-145) Potassium Level 4.4 mmol/L (3.5-5.1) Chloride Level 101 mmol/L (98-107) Carbon Dioxide Level 28 mmol/L (21-32) Anion Gap 5 (6-14) Blood Urea Nitrogen 13 mg/dL (8-26) Creatinine 0.7 mg/dL (0.7-1.3) Estimated GFR (Cockcroft-Gault) 115.0 BUN/Creatinine Ratio 19 (6-20) Glucose Level 101 mg/dL (70-99) Calcium Level 9.2 mg/dL (8.5-10.1) Magnesium Level 2.2 mg/dL (1.8-2.4) Total Bilirubin 6.3 mg/dL (0.2-1.0) Aspartate Amino Transf (AST/SGOT) 87 U/L (15-37) Alanine Aminotransferase (ALT/SGPT) 130 U/L (16-63) Alkaline Phosphatase 247 U/L (46-116) Troponin I Quantitative < 0.017 ng/mL (0.000-0.055) RA-Ysj-P-Type Natriuretic Peptide 107 pg/mL (0-124) Total Protein 7.3 g/dL (6.4-8.2) Albumin 3.5 g/dL (3.4-5.0) Albumin/Globulin Ratio 0.9 (1.0-1.7) Lipase 86 U/L (73-393) Urine Collection Type Unknown Urine Color [place] Urine Clarity Clear Urine pH 6.5 (<5.0-8.0) Urine Specific [place] >=1.030 (1.000-1.030) Urine Protein Negative mg/dL (NEG-TRACE) Urine Glucose (UA) Negative mg/dL (NEG) Urine Ketones (Stick) Negative mg/dL (NEG) Urine Blood Negative (NEG) Urine Nitrite Negative (NEG) Urine Bilirubin Large (NEG) Urine Urobilinogen Dipstick 0.2 mg/dL (0.2 mg/dL) Urine Leukocyte Esterase Negative (NEG) Urine RBC 0 /HPF (0-2) Urine WBC Occ /HPF (0-4) Urine Bacteria 0 /HPF (0-FEW) Urine Opiates Screen Pos (NEG) Urine Methadone Screen Pos (NEG) Urine Barbiturates Neg (NEG) Urine Phencyclidine Screen Neg (NEG) Urine Amphetamine/Methamphetamine Neg (NEG) Urine Benzodiazepines Screen Neg (NEG) Urine Cocaine Screen Neg (NEG) Urine Cannabinoids Screen Neg (NEG) Urine Ethyl Alcohol Neg (NEG) Laboratory Tests Test 07/16/20 13:10 07/16/20 13:50 07/16/20 15:30 White Blood Count 6.4 x10^3/uL (4.0-11.0) Red Blood Count 4.83 x10^6/uL (4.30-5.70) Hemoglobin 14.8 g/dL (13.0-17.5) Hematocrit 44.1 % (39.0-53.0) Mean Corpuscular Volume 91 fL (79-100) Mean Corpuscular Hemoglobin 31 pg (25-35) Mean Corpuscular Hemoglobin Concent 34 g/dL (31-37) Red Cell Distribution Width 14.0 % (11.5-14.5) Platelet Count 151 x10^3/uL (140-400) Neutrophils (%) (Auto) 62 % (31-73) Lymphocytes (%) (Auto) 18 % (24-48) Monocytes (%) (Auto) 18 % (0-9) Eosinophils (%) (Auto) 2 % (0-3) Basophils (%) (Auto) 0 % (0-3) Neutrophils # (Auto) 4.0 x10^3/uL (1.8-7.7) Lymphocytes # (Auto) 1.2 x10^3/uL (1.0-4.8) Monocytes # (Auto) 1.1 x10^3/uL (0.0-1.1) Eosinophils # (Auto) 0.2 x10^3/uL (0.0-0.7) Basophils # (Auto) 0.0 x10^3/uL (0.0-0.2) D-Dimer ([place]) 0.34 ug/mlFEU (0.00-0.50) Sodium Level 134 mmol/L (136-145) Potassium Level 4.4 mmol/L (3.5-5.1) Chloride Level 101 mmol/L (98-107) Carbon Dioxide Level 28 mmol/L (21-32) Anion Gap 5 (6-14) Blood Urea Nitrogen 13 mg/dL (8-26) Creatinine 0.7 mg/dL (0.7-1.3) Estimated GFR (Cockcroft-Gault) 115.0 BUN/Creatinine Ratio 19 (6-20) Glucose Level 101 mg/dL (70-99) Calcium Level 9.2 mg/dL (8.5-10.1) Magnesium Level 2.2 mg/dL (1.8-2.4) Total Bilirubin 6.3 mg/dL (0.2-1.0) Aspartate Amino Transf (AST/SGOT) 87 U/L (15-37) Alanine Aminotransferase (ALT/SGPT) 130 U/L (16-63) Alkaline Phosphatase 247 U/L (46-116) Troponin I Quantitative < 0.017 ng/mL (0.000-0.055) PH-Hff-P-Type Natriuretic Peptide 107 pg/mL (0-124) Total Protein 7.3 g/dL (6.4-8.2) Albumin 3.5 g/dL (3.4-5.0) Albumin/Globulin Ratio 0.9 (1.0-1.7) Lipase 86 U/L (73-393) Urine Collection Type Unknown Urine Color [place] Urine Clarity Clear Urine pH 6.5 (<5.0-8.0) Urine Specific [place] >=1.030 (1.000-1.030) Urine Protein Negative mg/dL (NEG-TRACE) Urine Glucose (UA) Negative mg/dL (NEG) Urine Ketones (Stick) Negative mg/dL (NEG) Urine Blood Negative (NEG) Urine Nitrite Negative (NEG) Urine Bilirubin Large (NEG) Urine Urobilinogen Dipstick 0.2 mg/dL (0.2 mg/dL) Urine Leukocyte Esterase Negative (NEG) Urine RBC 0 /HPF (0-2) Urine WBC Occ /HPF (0-4) Urine Bacteria 0 /HPF (0-FEW) Urine Opiates Screen Pos (NEG) Urine Methadone Screen Pos (NEG) Urine Barbiturates Neg (NEG) Urine Phencyclidine Screen Neg (NEG) Urine Amphetamine/Methamphetamine Neg (NEG) Urine Benzodiazepines Screen Neg (NEG) Urine Cocaine Screen Neg (NEG) Urine Cannabinoids Screen Neg (NEG) Urine Ethyl Alcohol Neg (NEG) Images Images CT abdomen/pelvis with contrast 07/16/2020 2:21 PM INDICATION: Abdominal pain, rectal bleeding and jaundice. COMPARISON: CT abdomen/pelvis 09/30/2018 TECHNIQUE: Multiple axial CT images of the abdomen and pelvis were obtained after the intravenous administration of nonionic contrast. Coronal and sagittal reformats are provided. FINDINGS: There is subsegmental atelectasis at the lung bases. Mild coronary artery vascular calcifications. Hypoattenuation of the hepatic parenchyma is suggestive of hepatic steatosis. Gallbladder is distended measuring 4.5 cm in diameter. Calcifications within the spleen likely represent sequela prior granulomatous exposure. Adrenal glands are normal in appearance. Mild fatty atrophy of the pancreas. Common bile duct is dilated measuring 10 mm, previously measuring up to 4 mm. No dilatation of main pancreatic duct. The abdominal aorta is normal in course and caliber. There are no pathologically enlarged lymph nodes in the abdomen and pelvis. There is no abdominal free flui d. There is no free intraperitoneal air. The kidneys enhance symmetrically. There is no suspicious renal mass. There is no hydronephrosis. There are no suspected calculi within the kidneys, ureters or urinary bladder. Urinary bladder is within normal limits given degree of distention. Prostate and seminal vesicles are normal in appearance. There are multifocal areas of under distention involving the colon, limiting evaluation. Appendix is normal in appearance. No bowel obstruction or inflammation. No suspicious osseous abnormality is identified. IMPRESSION: 1. There is dilatation of the common bile duct without definite obstructive etiology identified on this examination. Consideration may be on for sludge, stricture or choledocholithiasis. Further characterization with MRCP could be of benefit. 2. Mild distention of the gallbladder without calcified gallstones. 3. Mild bibasilar subsegmental atelectasis. INDICATION : Reason: RUQ pain gallstones on Ct / Spl. Instructions: / History: COMPARISON: CT from earlier same day TECHNIQUE: Multiple ultrasound images obtained through the abdomen in grayscale and color. FINDINGS: Liver: Echogenic Gallbladder: Dilated with echogenic material within. There may be some vascular flow within the lumen. IVC: Largely obscured by overlying structures. Common Bile Duct: 9 mm Pancreas: Largely obscured by overlying structures. Right Kidney: No hydronephrosis. IMPRESSION: * Dilated gallbladder is identified. Would correlate for possible causes such as hydrops. Within the gallbladder lumen there is a large amount of echogenic material seen with some possible internal vascularity. This could be secondary to a large amount of gallbladder sludge but would consider obtaining a nonemergent MRI with and without contrast to ensure that there is not a solid lesion within the gallbladder contributing. * Dilation of the common bile duct. * Liver is echogenic. Nonspecific but can be seen with fatty infiltration. VTE Prophylaxis Ordered VTE Prophylaxis Devices: No VTE Pharmacological Prophylaxi: Yes Assessment/Plan Assessment/Plan Dilated gallbladder with biliary sludge Hyperbilirubinemia Plan: General surgery consulted in ED; will consult GI as well. NPO after midnight for likely cholecystectomy. Benadryl as needed itching; cholestyramine 4g p.o. twice daily as needed itching Morphine and Zofran as needed FEN - Regular diet PPX - Heparin FULL CODE Dispo - inpatient for above Justifications for Admission Other Justification CLAUDIA EM MD Jul 16, 2020 17:37
[2020-07-16] MEDS ORDERED: ONDANSETRON PF 4 MG/2 ML VIAL. IV PRN (18:30)
[2020-07-16] MEDS ORDERED: fentaNYL PF VIAL 100 MCG/2 ML VIAL IV PRN (18:30)
[2020-07-16] MEDS ORDERED: CALCIUM CARBONATE 500 MG TAB.CHEW PO PRN (19:00)
[2020-07-16] MEDS ORDERED: MAGNESIUM HYDROXIDE 2,400 MG/30 ML ORAL.SUSP. PO PRN (19:00)
[2020-07-16] MEDS ORDERED: MAG HYDROX/ALUMINUM HYD/SIMETH 30 ML ORAL.SUSP PO PRN (19:00)
[2020-07-16] MEDS ORDERED: BISACODYL 10 MG SUPP.RECT. PR PRN (19:00)
[2020-07-16] MEDS ORDERED: ONDANSETRON PF 4 MG/2 ML VIAL. IVP PRN (19:00)
[2020-07-16 20:30] VITALS: BP 149/74
--- NOTE | 2020-07-16 20:45 | NUR ---
The patient, CUCA FINNEY, 60 y/o, M admitted by CLAUDIA EM MD, was given written information regarding hospital policies, unit procedures and contact persons. Valuables were checked and left with him.
[2020-07-16] MEDS: diphenhydrAMINE 50 MG/ML VIAL IVP PRN (21:12)
[2020-07-16] MEDS: ZOLPIDEM 5 MG TABLET. PO PRN (21:12)
[2020-07-16] MEDS: MORPHINE SULFATE 4 MG/ML VIAL. IV PRN (21:14)
[2020-07-16] MEDS: HEPARIN for SUB-Q USE 5,000 UNIT/ML VIAL. SQ SCH (21:16)
[2020-07-16 23:00] VITALS: BP_SYST 130; BP_SYST 139; BP_DIAS 68; BP_DIAS 78
[2020-07-17] VITALS (12 sets, daily range): BP systolic 111–143; BP diastolic 65–91
[2020-07-17] MEDS: diphenhydrAMINE 50 MG/ML VIAL IVP PRN ×2 (03:10→09:29)
[2020-07-17] MEDS: HEPARIN for SUB-Q USE 5,000 UNIT/ML VIAL. SQ SCH ×3 (04:58→20:17)
[2020-07-17 08:32] LABS: BASO % 1 % (0-3); EOS # 0.2 x10^3/uL (0.0-0.7); EOS % 4 % (0-3); HEMATOCRIT 41.5 % (39.0-53.0); LYMPH # 1.3 x10^3/uL (1.0-4.8); LYMPH % 24 % (24-48); MEAN CORPUSCULAR HEMOGLOBIN 31 pg (25-35); MEAN CORPUSCULAR HGB CONC 34 g/dL (31-37); MEAN CORPUSCULAR VOLUME 92 fL (79-100); MONO # 1.1 x10^3/uL (0.0-1.1); MONO % 19 % (0-9); NEUT # 2.9 x10^3/uL (1.8-7.7); NEUT % 53 % (31-73); PLATELET COUNT 111 x10^3/uL (140-400); RED BLOOD COUNT 4.54 x10^6/uL (4.30-5.70); WHITE BLOOD COUNT 5.5 x10^3/uL (4.0-11.0)
[2020-07-17 08:49] LABS: ALBUMIN 2.8 g/dL (3.4-5.0); ALBUMIN/GLOBULIN RATIO 0.8 (1.0-1.7); CREATININE 0.7 mg/dL (0.7-1.3); TOTAL BILIRUBIN 5.8 mg/dL (0.2-1.0); TOTAL PROTEIN 6.2 g/dL (6.4-8.2)
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
--- NOTE | 2020-07-17 09:16 | PDOC2 ---
SUZANNA GUADALUPE [employer] 07/17/20 0915: CONSULT Date of Consult Date of Consult DATE: 07/17/20 TIME: 09:08 Reason for Consult Reason for Consult: abd pain Referring Physician Referring Physician: ER Identification/Chief Complaint Chief Complaint elevated LFTs Source Source: Chart review, Patient History of Present Illness Reason for Visit: Patient reports 1 week hx of abdominal pain, pruritus, jaundice. Seen by PCP and lab work concerning, sent him to ER. Upper abdominal pain in rib area. Nausea present. Denies vomiting. Does report has still been able to eat, does not seem to worsen pain. Reports last few years high sweet cravings and eating a lot of sweets. Denies weight changes. Does have constipation issues Past Medical History Psych: Anxiety, Depression Past Surgical History Past Surgical History: No pertinent history Family History Family History: Cancer (mother colon, niece breast, grandson sarcoma) Social History No ALCOHOL: occassional Drugs: None Current Problem List Problem List Problems Medical Problems: (1) Choledocholithiasis Status: Acute (2) Elevated bilirubin Status: Acute (3) Transaminitis Status: Acute Current Medications Current Medications Current Medications Aspirin (Sheila Aspirin) 325 mg 1X ONCE PO Last administered on 07/16/20at 13:39; Start 07/16/20 at 13:15; Stop 07/16/20 at 13:16; Status DC Nitroglycerin (Nitrostat) 0.4 mg PRN Q5MIN PRN SL CP RATING > 1/10 Last administered on 07/16/20at 13:40; Start 07/16/20 at 13:15; Stop 07/17/20 at 13:14 Morphine Sulfate (Morphine Sulfate) 2 mg PRN Q15MIN PRN IV/SQ PAIN GREATER THAN 3/10 Last administered on 07/16/20at 13:41; Start 07/16/20 at 13:15; Stop 07/17/20 at 13:14 Diphenhydramine HCl (Benadryl) 25 mg 1X ONCE IVP Last administered on 07/16/20at 13:39; Start 07/16/20 at 13:45; Stop 07/16/20 at 13:46; Status DC Iohexol (Omnipaque 300 Mg/ml) 75 ml 1X ONCE IV Last administered on 07/16/20at 14:37; Start 07/16/20 at 14:30; Stop 07/16/20 at 14:31; Status DC Info (CONTRAST GIVEN -- Rx MONITORING) 1 each PRN DAILY PRN MC SEE COMMENTS; Start 07/16/20 at 14:30; Stop 07/18/20 at 14:29 Sodium Chloride 1,000 ml @ 1,000 mls/hr 1X ONCE IV Last administered on 07/16/20at 16:01; Start 07/16/20 at 16:00; Stop 07/16/20 at 16:59; Status DC Hydroxyzine HCl (Atarax) 25 mg 1X STAT PO Last administered on 07/16/20at 17:46; Start 07/16/20 at 17:08; Stop 07/16/20 at 17:10; Status DC Sodium Chloride 1,000 ml @ 1,000 mls/hr 1X ONCE IV Last administered on 07/16/20at 17:46; Start 07/16/20 at 17:15; Stop 07/16/20 at 18:14; Status DC Morphine Sulfate (Morphine Sulfate) 4 mg PRN Q2HRS PRN IV PAIN Last administered on 07/16/20at 21:14; Start 07/16/20 at 17:30 Diphenhydramine HCl (Benadryl) 50 mg PRN Q6HRS PRN IVP ITCHING Last administered on 07/17/20at 03:10; Start 07/16/20 at 17:30 Cholestyramine Resin (Questran Light) 4 gm PRN BID PRN PO ITCHING; Start 07/16/20 at 17:30 Ondansetron HCl (Zofran) 4 mg PRN Q8HRS PRN IV NAUSEA/VOMITING; Start 07/16/20 at 18:30; Stop 07/17/20 at 18:29 Fentanyl Citrate (Fentanyl 2ml Vial) 50 mcg PRN Q1HR PRN IV PAIN Last administered on 07/17/20at 03:10; Start 07/16/20 at 18:30; Stop 07/17/20 at 18:29 Sodium Chloride 1,000 ml @ 125 mls/hr 1X ONCE IV Last administered on 07/16/20at 21:10; Start 07/16/20 at 18:30; Stop 07/17/20 at 02:29; Status DC Ondansetron HCl (Zofran) 4 mg PRN Q6HRS PRN IVP NAUSEA/VOMITING Last admi nistered on 07/16/20at 21:13; Start 07/16/20 at 19:00 Al Hydroxide/Mg Hydroxide (Mylanta Plus Xs) 30 ml PRN Q3HRS PRN PO HEARTBURN / GAS; Start 07/16/20 at 19:00 Calcium Carbonate/ Glycine (Tums) 500 mg PRN Q3HRS PRN PO UPSET STOMACH; Start 07/16/20 at 19:00 Zolpidem Tartrate (Ambien) 5 mg PRN QHS PRN PO INSOMNIA, MAY REPEAT IN 1HR Last administered on 07/16/20at 21:12; Start 07/16/20 at 19:00 Magnesium Hydroxide (Milk Of Magnesia) 2,400 mg PRN Q12HR PRN PO CONSTIPATION; Start 07/16/20 at 19:00 Bisacodyl (Dulcolax Supp) 10 mg PRN DAILY PRN OR CONSTIPATION; Start 07/16/20 at 19:00 Heparin Sodium (Porcine) (Heparin Sodium) 5,000 unit Q8HRS SQ Last administered on 07/16/20at 21:16; Start 07/16/20 at 22:00 Active Scripts Active Reported Methadone Hcl 10 Mg Tablet 10 Mg PO BID Allergies Allergies: Coded Allergies: Penicillins (Verified Allergy, Intermediate, 11/09/16) ROS General: No: Chills, Other (fevers ) PSYCHOLOGICAL ROS: YES: Anxiety, Depression Eyes: No Blurry vision, No Double vision HEENT: No: Heacaches, Sore Throat Hematological and Lymphatic: No: Bleeding Problems, Blood Clots Respiratory: No: Cough, Shortness of breath Cardiovascular: No Chest Pain, No Palpitations Gastrointestinal: Yes Other (see hpi) Genitourinary: YES Other (dark urine ); No Dysuria, No Hematuria Musculoskeletal: No Joint Pain, No Muscle Pain Neurological: No Impaired Coord/balance, No Numbness/Tingling Skin: Yes Pruritus; No Rash Physical Exam General: Alert, Oriented X3, Cooperative HEENT: Atraumatic, PERRLA, Other (jaundice) Lungs: Clear to auscultation, Normal air movement Heart: Regular rate, Normal S1, Normal S2 Abdomen: Soft, Other (mild ttp RUQ) Extremities: No clubbing, No cyanosis Skin: No rashes, No breakdown Neuro: Normal gait, Normal speech Psych/Mental Status: Mental status NL, Mood NL MUSCULOSKELETAL: No deformity, No swelling Vitals VITALS Vital Signs Date Time Temp Pulse Resp B/P (MAP) Pulse Ox O2 Delivery O2 Flow Rate FiO2 07/17/20 07:00 98.0 63 18 111/65 (80) 95 Room Air 98.0 Labs Labs Laboratory Tests Test 07/16/20 13:10 07/16/20 13:50 07/16/20 15:30 07/16/20 17:50 White Blood Count 6.4 x10^3/uL (4.0-11.0) Red Blood Count 4.83 x10^6/uL (4.30-5.70) Hemoglobin 14.8 g/dL (13.0-17.5) Hematocrit 44.1 % (39.0-53.0) Mean Corpuscular Volume 91 fL (79-100) Mean Corpuscular Hemoglobin 31 pg (25-35) Mean Corpuscular Hemoglobin Concent 34 g/dL (31-37) Red Cell Distribution Width 14.0 % (11.5-14.5) Platelet Count 151 x10^3/uL (140-400) Neutrophils (%) (Auto) 62 % (31-73) Lymphocytes (%) (Auto) 18 % (24-48) Monocytes (%) (Auto) 18 % (0-9) Eosinophils (%) (Auto) 2 % (0-3) Basophils (%) (Auto) 0 % (0-3) Neutrophils # (Auto) 4.0 x10^3/uL (1.8-7.7) Lymphocytes # (Auto) 1.2 x10^3/uL (1.0-4.8) Monocytes # (Auto) 1.1 x10^3/uL (0.0-1.1) Eosinophils # (Auto) 0.2 x10^3/uL (0.0-0.7) Basophils # (Auto) 0.0 x10^3/uL (0.0-0.2) D-Dimer ([place]) 0.34 ug/mlFEU (0.00-0.50) Sodium Level 134 mmol/L (136-145) Potassium Level 4.4 mmol/L (3.5-5.1) Chloride Level 101 mmol/L (98-107) Carbon Dioxide Level 28 mmol/L (21-32) Anion Gap 5 (6-14) Blood Urea Nitrogen 13 mg/dL (8-26) Creatinine 0.7 mg/dL (0.7-1.3) Estimated GFR (Cockcroft-Gault) 115.0 BUN/Creatinine Ratio 19 (6-20) Glucose Level 101 mg/dL (70-99) Calcium Level 9.2 mg/dL (8.5-10.1) Magnesium Level 2.2 mg/dL (1.8-2.4) Total Bilirubin 6.3 mg/dL (0.2-1.0) Aspartate Amino Transf (AST/SGOT) 87 U/L (15-37) Alanine Aminotransferase (ALT/SGPT) 130 U/L (16-63) Alkaline Phosphatase 247 U/L (46-116) Troponin I Quantitative < 0.017 ng/mL (0.000-0.055) XD-Mtd-Q-Type Natriuretic Peptide 107 pg/mL (0-124) Total Protein 7.3 g/dL (6.4-8.2) Albumin 3.5 g/dL (3.4-5.0) Albumin/Globulin Ratio 0.9 (1.0-1.7) Lipase 86 U/L (73-393) Urine Collection Type Unknown Urine Color [place] Urine Clarity Clear Urine pH 6.5 (<5.0-8.0) Urine Specific [place] >=1.030 (1.000-1.030) Urine Protein Negative mg/dL (NEG-TRACE) Urine Glucose (UA) Negative mg/dL (NEG) Urine Ketones (Stick) Negative mg/dL (NEG) Urine Blood Negative (NEG) Urine Nitrite Negative (NEG) Urine Bilirubin Large (NEG) Urine Urobilinogen Dipstick 0.2 mg/dL (0.2 mg/dL) Urine Leukocyte Esterase Negative (NEG) Urine RBC 0 /HPF (0-2) Urine WBC Occ /HPF (0-4) Urine Bacteria 0 /HPF (0-FEW) Urine Opiates Screen Pos (NEG) Urine Methadone Screen Pos (NEG) Urine Barbiturates Neg (NEG) Urine Phencyclidine Screen Neg (NEG) Urine Amphetamine/Methamphetamine Neg (NEG) Urine Benzodiazepines Screen Neg (NEG) Urine Cocaine Screen Neg (NEG) Urine Cannabinoids Screen Neg (NEG) Urine Ethyl Alcohol Neg (NEG) SARS-CoV-2 Antigen (Rapid) Negative (NEGATIVE) Test 07/17/20 07:33 White Blood Count 5.5 x10^3/uL (4.0-11.0) Red Blood Count 4.54 x10^6/uL (4.30-5.70) Hemoglobin 14.0 g/dL (13.0-17.5) Hematocrit 41.5 % (39.0-53.0) Mean Corpuscular Volume 92 fL (79-100) Mean Corpuscular Hemoglobin 31 pg (25-35) Mean Corpuscular Hemoglobin Concent 34 g/dL (31-37) Red Cell Distribution Width 14.0 % (11.5-14.5) Platelet Count 111 x10^3/uL (140-400) Neutrophils (%) (Auto) 53 % (31-73) Lymphocytes (%) (Auto) 24 % (24-48) Monocytes (%) (Auto) 19 % (0-9) Eosinophils (%) (Auto) 4 % (0-3) Basophils (%) (Auto) 1 % (0-3) Neutrophils # (Auto) 2.9 x10^3/uL (1.8-7.7) Lymphocytes # (Auto) 1.3 x10^3/uL (1.0-4.8) Monocytes # (Auto) 1.1 x10^3/uL (0.0-1.1) Eosinophils # (Auto) 0.2 x10^3/uL (0.0-0.7) Basophils # (Auto) 0.0 x10^3/uL (0.0-0.2) Sodium Level 136 mmol/L (136-145) Potassium Level 4.0 mmol/L (3.5-5.1) Chloride Level 101 mmol/L (98-107) Carbon Dioxide Level 27 mmol/L (21-32) Anion Gap 8 (6-14) Blood Urea Nitrogen 9 mg/dL (8-26) Creatinine 0.7 mg/dL (0.7-1.3) Estimated GFR (Cockcroft-Gault) 115.0 BUN/Creatinine Ratio 13 (6-20) Glucose Level 98 mg/dL (70-99) Calcium Level 9.0 mg/dL (8.5-10.1) Total Bilirubin 5.8 mg/dL (0.2-1.0) Aspartate Amino Transf (AST/SGOT) 84 U/L (15-37) Alanine Aminotransferase (ALT/SGPT) 108 U/L (16-63) Alkaline Phosphatase 218 U/L (46-116) Total Protein 6.2 g/dL (6.4-8.2) Albumin 2.8 g/dL (3.4-5.0) Albumin/Globulin Ratio 0.8 (1.0-1.7) Laboratory Tests Test 07/16/20 13:10 07/16/20 13:50 07/16/20 15:30 07/16/20 17:50 White Blood Count 6.4 x10^3/uL (4.0-11.0) Red Blood Count 4.83 x10^6/uL (4.30-5.70) Hemoglobin 14.8 g/dL (13.0-17.5) Hematocrit 44.1 % (39.0-53.0) Mean Corpuscular Volume 91 fL (79-100) Mean Corpuscular Hemoglobin 31 pg (25-35) Mean Corpuscular Hemoglobin Concent 34 g/dL (31-37) Red Cell Distribution Width 14.0 % (11.5-14.5) Platelet Count 151 x10^3/uL (140-400) Neutrophils (%) (Auto) 62 % (31-73) Lymphocytes (%) (Auto) 18 % (24-48) Monocytes (%) (Auto) 18 % (0-9) Eosinophils (%) (Auto) 2 % (0-3) Basophils (%) (Auto) 0 % (0-3) Neutrophils # (Auto) 4.0 x10^3/uL (1.8-7.7) Lymphocytes # (Auto) 1.2 x10^3/uL (1.0-4.8) Monocytes # (Auto) 1.1 x10^3/uL (0.0-1.1) Eosinophils # (Auto) 0.2 x10^3/uL (0.0-0.7) Basophils # (Auto) 0.0 x10^3/uL (0.0-0.2) D-Dimer ([place]) 0.34 ug/mlFEU (0.00-0.50) Sodium Level 134 mmol/L (136-145) Potassium Level 4.4 mmol/L (3.5-5.1) Chloride Level 101 mmol/L (98-107) Carbon Dioxide Level 28 mmol/L (21-32) Anion Gap 5 (6-14) Blood Urea Nitrogen 13 mg/dL (8-26) Creatinine 0.7 mg/dL (0.7-1.3) Estimated GFR (Cockcroft-Gault) 115.0 BUN/Creatinine Ratio 19 (6-20) Glucose Level 101 mg/dL (70-99) Calcium Level 9.2 mg/dL (8.5-10.1) Magnesium Level 2.2 mg/dL (1.8-2.4) Total Bilirubin 6.3 mg/dL (0.2-1.0) Aspartate Amino Transf (AST/SGOT) 87 U/L (15-37) Alanine Aminotransferase (ALT/SGPT) 130 U/L (16-63) Alkaline Phosphatase 247 U/L (46-116) Troponin I Quantitative < 0.017 ng/mL (0.000-0.055) SU-Guh-H-Type Natriuretic Peptide 107 pg/mL (0-124) Total Protein 7.3 g/dL (6.4-8.2) Albumin 3.5 g/dL (3.4-5.0) Albumin/Globulin Ratio 0.9 (1.0-1.7) Lipase 86 U/L (73-393) Urine Collection Type Unknown Urine Color [place] Urine Clarity Clear Urine pH 6.5 (<5.0-8.0) Urine Specific [place] >=1.030 (1.000-1.030) Urine Protein Negative mg/dL (NEG-TRACE) Urine Glucose (UA) Negative mg/dL (NEG) Urine Ketones (Stick) Negative mg/dL (NEG) Urine Blood Negative (NEG) Urine Nitrite Negative (NEG) Urine Bilirubin Large (NEG) Urine Urobilinogen Dipstick 0.2 mg/dL (0.2 mg/dL) Urine Leukocyte Esterase Negative (NEG) Urine RBC 0 /HPF (0-2) Urine WBC Occ /HPF (0-4) Urine Bacteria 0 /HPF (0-FEW) Urine Opiates Screen Pos (NEG) Urine Methadone Screen Pos (NEG) Urine Barbiturates Neg (NEG) Urine Phencyclidine Screen Neg (NEG) Urine Amphetamine/Methamphetamine Neg (NEG) Urine Benzodiazepines Screen Neg (NEG) Urine Cocaine Screen Neg (NEG) Urine Cannabinoids Screen Neg (NEG) Urine Ethyl Alcohol Neg (NEG) SARS-CoV-2 Antigen (Rapid) Negative (NEGATIVE) Test 07/17/20 07:33 White Blood Count 5.5 x10^3/uL (4.0-11.0) Red Blood Count 4.54 x10^6/uL (4.30-5.70) Hemoglobin 14.0 g/dL (13.0-17.5) Hematocrit 41.5 % (39.0-53.0) Mean Corpuscular Volume 92 fL (79-100) Mean Corpuscular Hemoglobin 31 pg (25-35) Mean Corpuscular Hemoglobin Concent 34 g/dL (31-37) Red Cell Distribution Width 14.0 % (11.5-14.5) Platelet Count 111 x10^3/uL (140-400) Neutrophils (%) (Auto) 53 % (31-73) Lymphocytes (%) (Auto) 24 % (24-48) Monocytes (%) (Auto) 19 % (0-9) Eosinophils (%) (Auto) 4 % (0-3) Basophils (%) (Auto) 1 % (0-3) Neutrophils # (Auto) 2.9 x10^3/uL (1.8-7.7) Lymphocytes # (Auto) 1.3 x10^3/uL (1.0-4.8) Monocytes # (Auto) 1.1 x10^3/uL (0.0-1.1) Eosinophils # (Auto) 0.2 x10^3/uL (0.0-0.7) Basophils # (Auto) 0.0 x10^3/uL (0.0-0.2) Sodium Level 136 mmol/L (136-145) Potassium Level 4.0 mmol/L (3.5-5.1) Chloride Level 101 mmol/L (98-107) Carbon Dioxide Level 27 mmol/L (21-32) Anion Gap 8 (6-14) Blood Urea Nitrogen 9 mg/dL (8-26) Creatinine 0.7 mg/dL (0.7-1.3) Estimated GFR (Cockcroft-Gault) 115.0 BUN/Creatinine Ratio 13 (6-20) Glucose Level 98 mg/dL (70-99) Calcium Level 9.0 mg/dL (8.5-10.1) Total Bilirubin 5.8 mg/dL (0.2-1.0) Aspartate Amino Transf (AST/SGOT) 84 U/L (15-37) Alanine Aminotransferase (ALT/SGPT) 108 U/L (16-63) Alkaline Phosphatase 218 U/L (46-116) Total Protein 6.2 g/dL (6.4-8.2) Albumin 2.8 g/dL (3.4-5.0) Albumin/Globulin Ratio 0.8 (1.0-1.7) Assessment/Plan Assessment/Plan Elevated LFTS--slight improvement in labs today pruritus, jaundice abnormal imaging noted of gallbladder and CBD d/w GI, ? MRCP CHELLE CROSS MD 07/17/20 0928: CONSULT Assessment/Plan Assessment/Plan Patient seen and examined by me currently not complaining of any pain. Abdomen is soft he is tender epigastrium to the right upper quadrant no peritoneal signs. Labs reviewed CT scan showing gallbladder sludge but no pericholecystic inflammation. Dilated common bile duct. Agree with [place] assessment plan for further evaluation awaiting GIs input SUZANNA GUADALUPE APRN Jul 17, 2020 09:15 CHELLE CROSS MD Jul 17, 2020 09:28
--- NOTE | 2020-07-17 09:24 | PDOC ---
PROGRESS NOTES Date of Service: DATE: 07/17/20 TIME: 09:18 Chief Complaint Chief Complaint Choledocholithiasis? Hyperbilirubinemia secondary to the above, dilated CBD with unknown etiology, patient fears cancer, reassurance provided Overweight Hepatic steatosis Family history of GI cancers in the family Plan: follow recommendations from consultants NPO will switch to Atarax for pruritus; cholestyramine 4g p.o. twice daily as needed itching Morphine and Zofran as needed FEN - Regular diet PPX - Heparin FULL CODE Dispo - inpatient for above History of Present Illness History of Present Illness History of Present Illness Patient is a 60-year-old male with past medical history chronic pain on methadone, constipation, who was sent to the ER for further evaluation after he was noted to had elevated liver enzymes. She reports intermittent upper abdominal pain, generalized pruritus, yellowing of his skin and sclera over the past week. He was seen by his PCP for the symptoms 2 days ago and told to report to the ER for his transaminitis and hyperbilirubinemia. Imaging obtained in the ED showed dilated gallbladder with large amount of gallbladder sludge and dilated common bile duct. General surgery was contacted by ED, and patient was recommended to be NPO after midnight for possible surgical procedure. Patient also notes blood in his stool and blood in his urine over the past week. UA on admission is negative for blood but does show large bilirubin. Hemoglobin within normal limits. Will admit patient for further medical management. 07/17: Patient quite tearful during the encounter since he feels like his cat cancer in his quite irritated by the itchiness. GI toy consultant at bedside we have discussed the plan of care in detail greater than 40 minutes were spent in the care of the patient in [id number] contact counseling coordination of care and formulation of the treatment plan Vitals Vitals Vital Signs Date Time Temp Pulse Resp B/P (MAP) Pulse Ox O2 Delivery O2 Flow Rate FiO2 07/17/20 07:00 98.0 63 18 111/65 (80) 95 Room Air 98.0 Physical Exam General: Alert, Oriented X3, Cooperative Heart: Regular rate, Normal S1, Normal S2 Abdomen: Soft, Other (mild ttp RUQ) Extremities: No clubbing, No cyanosis Skin: No rashes, No breakdown Labs LABS Laboratory Tests Test 07/16/20 13:10 07/16/20 13:50 07/16/20 15:30 07/16/20 17:50 White Blood Count 6.4 x10^3/uL (4.0-11.0) Red Blood Count 4.83 x10^6/uL (4.30-5.70) Hemoglobin 14.8 g/dL (13.0-17.5) Hematocrit 44.1 % (39.0-53.0) Mean Corpuscular Volume 91 fL (79-100) Mean Corpuscular Hemoglobin 31 pg (25-35) Mean Corpuscular Hemoglobin Concent 34 g/dL (31-37) Red Cell Distribution Width 14.0 % (11.5-14.5) Platelet Count 151 x10^3/uL (140-400) Neutrophils (%) (Auto) 62 % (31-73) Lymphocytes (%) (Auto) 18 % (24-48) Monocytes (%) (Auto) 18 % (0-9) Eosinophils (%) (Auto) 2 % (0-3) Basophils (%) (Auto) 0 % (0-3) Neutrophils # (Auto) 4.0 x10^3/uL (1.8-7.7) Lymphocytes # (Auto) 1.2 x10^3/uL (1.0-4.8) Monocytes # (Auto) 1.1 x10^3/uL (0.0-1.1) Eosinophils # (Auto) 0.2 x10^3/uL (0.0-0.7) Basophils # (Auto) 0.0 x10^3/uL (0.0-0.2) D-Dimer ([place]) 0.34 ug/mlFEU (0.00-0.50) Sodium Level 134 mmol/L (136-145) Potassium Level 4.4 mmol/L (3.5-5.1) Chloride Level 101 mmol/L (98-107) Carbon Dioxide Level 28 mmol/L (21-32) Anion Gap 5 (6-14) Blood Urea Nitrogen 13 mg/dL (8-26) Creatinine 0.7 mg/dL (0.7-1.3) Estimated GFR (Cockcroft-Gault) 115.0 BUN/Creatinine Ratio 19 (6-20) Glucose Level 101 mg/dL (70-99) Calcium Level 9.2 mg/dL (8.5-10.1) Magnesium Level 2.2 mg/dL (1.8-2.4) Total Bilirubin 6.3 mg/dL (0.2-1.0) Aspartate Amino Transf (AST/SGOT) 87 U/L (15-37) Alanine Aminotransferase (ALT/SGPT) 130 U/L (16-63) Alkaline Phosphatase 247 U/L (46-116) Troponin I Quantitative < 0.017 ng/mL (0.000-0.055) LA-Zah-A-Type Natriuretic Peptide 107 pg/mL (0-124) Total Protein 7.3 g/dL (6.4-8.2) Albumin 3.5 g/dL (3.4-5.0) Albumin/Globulin Ratio 0.9 (1.0-1.7) Lipase 86 U/L (73-393) Urine Collection Type Unknown Urine Color Kasey Urine Clarity Clear Urine pH 6.5 (<5.0-8.0) Urine Specific Willard >=1.030 (1.000-1.030) Urine Protein Negative mg/dL (NEG-TRACE) Urine Glucose (UA) Negative mg/dL (NEG) Urine Ketones (Stick) Negative mg/dL (NEG) Urine Blood Negative (NEG) Urine Nitrite Negative (NEG) Urine Bilirubin Large (NEG) Urine Urobilinogen Dipstick 0.2 mg/dL (0.2 mg/dL) Urine Leukocyte Esterase Negative (NEG) Urine RBC 0 /HPF (0-2) Urine WBC Occ /HPF (0-4) Urine Bacteria 0 /HPF (0-FEW) Urine Opiates Screen Pos (NEG) Urine Methadone Screen Pos (NEG) Urine Barbiturates Neg (NEG) Urine Phencyclidine Screen Neg (NEG) Urine Amphetamine/Methamphetamine Neg (NEG) Urine Benzodiazepines Screen Neg (NEG) Urine Cocaine Screen Neg (NEG) Urine Cannabinoids Screen Neg (NEG) Urine Ethyl Alcohol Neg (NEG) SARS-CoV-2 Antigen (Rapid) Negative (NEGATIVE) Test 07/17/20 07:33 White Blood Count 5.5 x10^3/uL (4.0-11.0) Red Blood Count 4.54 x10^6/uL (4.30-5.70) Hemoglobin 14.0 g/dL (13.0-17.5) Hematocrit 41.5 % (39.0-53.0) Mean Corpuscular Volume 92 fL (79-100) Mean Corpuscular Hemoglobin 31 pg (25-35) Mean Corpuscular Hemoglobin Concent 34 g/dL (31-37) Red Cell Distribution Width 14.0 % (11.5-14.5) Platelet Count 111 x10^3/uL (140-400) Neutrophils (%) (Auto) 53 % (31-73) Lymphocytes (%) (Auto) 24 % (24-48) Monocytes (%) (Auto) 19 % (0-9) Eosinophils (%) (Auto) 4 % (0-3) Basophils (%) (Auto) 1 % (0-3) Neutrophils # (Auto) 2.9 x10^3/uL (1.8-7.7) Lymphocytes # (Auto) 1.3 x10^3/uL (1.0-4.8) Monocytes # (Auto) 1.1 x10^3/uL (0.0-1.1) Eosinophils # (Auto) 0.2 x10^3/uL (0.0-0.7) Basophils # (Auto) 0.0 x10^3/uL (0.0-0.2) Sodium Level 136 mmol/L (136-145) Potassium Level 4.0 mmol/L (3.5-5.1) Chloride Level 101 mmol/L (98-107) Carbon Dioxide Level 27 mmol/L (21-32) Anion Gap 8 (6-14) Blood Urea Nitrogen 9 mg/dL (8-26) Creatinine 0.7 mg/dL (0.7-1.3) Estimated GFR (Cockcroft-Gault) 115.0 BUN/Creatinine Ratio 13 (6-20) Glucose Level 98 mg/dL (70-99) Calcium Level 9.0 mg/dL (8.5-10.1) Total Bilirubin 5.8 mg/dL (0.2-1.0) Aspartate Amino Transf (AST/SGOT) 84 U/L (15-37) Alanine Aminotransferase (ALT/SGPT) 108 U/L (16-63) Alkaline Phosphatase 218 U/L (46-116) Total Protein 6.2 g/dL (6.4-8.2) Albumin 2.8 g/dL (3.4-5.0) Albumin/Globulin Ratio 0.8 (1.0-1.7) Assessment and Plan Assessmemt and Plan Problems Medical Problems: (1) Choledocholithiasis Status: Acute (2) Elevated bilirubin Status: Acute (3) Transaminitis Status: Acute Comment Review of Relevant I have reviewed the following items john (where applicable) has been applied. Labs Laboratory Tests Test 07/16/20 13:10 07/16/20 13:50 07/16/20 15:30 07/16/20 17:50 White Blood Count 6.4 x10^3/uL (4.0-11.0) Red Blood Count 4.83 x10^6/uL (4.30-5.70) Hemoglobin 14.8 g/dL (13.0-17.5) Hematocrit 44.1 % (39.0-53.0) Mean Corpuscular Volume 91 fL (79-100) Mean Corpuscular Hemoglobin 31 pg (25-35) Mean Corpuscular Hemoglobin Concent 34 g/dL (31-37) Red Cell Distribution Width 14.0 % (11.5-14.5) Platelet Count 151 x10^3/uL (140-400) Neutrophils (%) (Auto) 62 % (31-73) Lymphocytes (%) (Auto) 18 % (24-48) Monocytes (%) (Auto) 18 % (0-9) Eosinophils (%) (Auto) 2 % (0-3) Basophils (%) (Auto) 0 % (0-3) Neutrophils # (Auto) 4.0 x10^3/uL (1.8-7.7) Lymphocytes # (Auto) 1.2 x10^3/uL (1.0-4.8) Monocytes # (Auto) 1.1 x10^3/uL (0.0-1.1) Eosinophils # (Auto) 0.2 x10^3/uL (0.0-0.7) Basophils # (Auto) 0.0 x10^3/uL (0.0-0.2) D-Dimer ([place]) 0.34 ug/mlFEU (0.00-0.50) Sodium Level 134 mmol/L (136-145) Potassium Level 4.4 mmol/L (3.5-5.1) Chloride Level 101 mmol/L (98-107) Carbon Dioxide Level 28 mmol/L (21-32) Anion Gap 5 (6-14) Blood Urea Nitrogen 13 mg/dL (8-26) Creatinine 0.7 mg/dL (0.7-1.3) Estimated GFR (Cockcroft-Gault) 115.0 BUN/Creatinine Ratio 19 (6-20) Glucose Level 101 mg/dL (70-99) Calcium Level 9.2 mg/dL (8.5-10.1) Magnesium Level 2.2 mg/dL (1.8-2.4) Total Bilirubin 6.3 mg/dL (0.2-1.0) Aspartate Amino Transf (AST/SGOT) 87 U/L (15-37) Alanine Aminotransferase (ALT/SGPT) 130 U/L (16-63) Alkaline Phosphatase 247 U/L (46-116) Troponin I Quantitative < 0.017 ng/mL (0.000-0.055) BK-Lxu-M-Type Natriuretic Peptide 107 pg/mL (0-124) Total Protein 7.3 g/dL (6.4-8.2) Albumin 3.5 g/dL (3.4-5.0) Albumin/Globulin Ratio 0.9 (1.0-1.7) Lipase 86 U/L (73-393) Urine Collection Type Unknown Urine Color Kasey Urine Clarity Clear Urine pH 6.5 (<5.0-8.0) Urine Specific Willard >=1.030 (1.000-1.030) Urine Protein Negative mg/dL (NEG-TRACE) Urine Glucose (UA) Negative mg/dL (NEG) Urine Ketones (Stick) Negative mg/dL (NEG) Urine Blood Negative (NEG) Urine Nitrite Negative (NEG) Urine Bilirubin Large (NEG) Urine Urobilinogen Dipstick 0.2 mg/dL (0.2 mg/dL) Urine Leukocyte Esterase Negative (NEG) Urine RBC 0 /HPF (0-2) Urine WBC Occ /HPF (0-4) Urine Bacteria 0 /HPF (0-FEW) Urine Opiates Screen Pos (NEG) Urine Methadone Screen Pos (NEG) Urine Barbiturates Neg (NEG) Urine Phencyclidine Screen Neg (NEG) Urine Amphetamine/Methamphetamine Neg (NEG) Urine Benzodiazepines Screen Neg (NEG) Urine Cocaine Screen Neg (NEG) Urine Cannabinoids Screen Neg (NEG) Urine Ethyl Alcohol Neg (NEG) SARS-CoV-2 Antigen (Rapid) Negative (NEGATIVE) Test 07/17/20 07:33 White Blood Count 5.5 x10^3/uL (4.0-11.0) Red Blood Count 4.54 x10^6/uL (4.30-5.70) Hemoglobin 14.0 g/dL (13.0-17.5) Hematocrit 41.5 % (39.0-53.0) Mean Corpuscular Volume 92 fL (79-100) Mean Corpuscular Hemoglobin 31 pg (25-35) Mean Corpuscular Hemoglobin Concent 34 g/dL (31-37) Red Cell Distribution Width 14.0 % (11.5-14.5) Platelet Count 111 x10^3/uL (140-400) Neutrophils (%) (Auto) 53 % (31-73) Lymphocytes (%) (Auto) 24 % (24-48) Monocytes (%) (Auto) 19 % (0-9) Eosinophils (%) (Auto) 4 % (0-3) Basophils (%) (Auto) 1 % (0-3) Neutrophils # (Auto) 2.9 x10^3/uL (1.8-7.7) Lymphocytes # (Auto) 1.3 x10^3/uL (1.0-4.8) Monocytes # (Auto) 1.1 x10^3/uL (0.0-1.1) Eosinophils # (Auto) 0.2 x10^3/uL (0.0-0.7) Basophils # (Auto) 0.0 x10^3/uL (0.0-0.2) Sodium Level 136 mmol/L (136-145) Potassium Level 4.0 mmol/L (3.5-5.1) Chloride Level 101 mmol/L (98-107) Carbon Dioxide Level 27 mmol/L (21-32) Anion Gap 8 (6-14) Blood Urea Nitrogen 9 mg/dL (8-26) Creatinine 0.7 mg/dL (0.7-1.3) Estimated GFR (Cockcroft-Gault) 115.0 BUN/Creatinine Ratio 13 (6-20) Glucose Level 98 mg/dL (70-99) Calcium Level 9.0 mg/dL (8.5-10.1) Total Bilirubin 5.8 mg/dL (0.2-1.0) Aspartate Amino Transf (AST/SGOT) 84 U/L (15-37) Alanine Aminotransferase (ALT/SGPT) 108 U/L (16-63) Alkaline Phosphatase 218 U/L (46-116) Total Protein 6.2 g/dL (6.4-8.2) Albumin 2.8 g/dL (3.4-5.0) Albumin/Globulin Ratio 0.8 (1.0-1.7) Laboratory Tests Test 07/16/20 13:10 07/16/20 13:50 07/16/20 15:30 07/16/20 17:50 White Blood Count 6.4 x10^3/uL (4.0-11.0) Red Blood Count 4.83 x10^6/uL (4.30-5.70) Hemoglobin 14.8 g/dL (13.0-17.5) Hematocrit 44.1 % (39.0-53.0) Mean Corpuscular Volume 91 fL (79-100) Mean Corpuscular Hemoglobin 31 pg (25-35) Mean Corpuscular Hemoglobin Concent 34 g/dL (31-37) Red Cell Distribution Width 14.0 % (11.5-14.5) Platelet Count 151 x10^3/uL (140-400) Neutrophils (%) (Auto) 62 % (31-73) Lymphocytes (%) (Auto) 18 % (24-48) Monocytes (%) (Auto) 18 % (0-9) Eosinophils (%) (Auto) 2 % (0-3) Basophils (%) (Auto) 0 % (0-3) Neutrophils # (Auto) 4.0 x10^3/uL (1.8-7.7) Lymphocytes # (Auto) 1.2 x10^3/uL (1.0-4.8) Monocytes # (Auto) 1.1 x10^3/uL (0.0-1.1) Eosinophils # (Auto) 0.2 x10^3/uL (0.0-0.7) Basophils # (Auto) 0.0 x10^3/uL (0.0-0.2) D-Dimer ([place]) 0.34 ug/mlFEU (0.00-0.50) Sodium Level 134 mmol/L (136-145) Potassium Level 4.4 mmol/L (3.5-5.1) Chloride Level 101 mmol/L (98-107) Carbon Dioxide Level 28 mmol/L (21-32) Anion Gap 5 (6-14) Blood Urea Nitrogen 13 mg/dL (8-26) Creatinine 0.7 mg/dL (0.7-1.3) Estimated GFR (Cockcroft-Gault) 115.0 BUN/Creatinine Ratio 19 (6-20) Glucose Level 101 mg/dL (70-99) Calcium Level 9.2 mg/dL (8.5-10.1) Magnesium Level 2.2 mg/dL (1.8-2.4) Total Bilirubin 6.3 mg/dL (0.2-1.0) Aspartate Amino Transf (AST/SGOT) 87 U/L (15-37) Alanine Aminotransferase (ALT/SGPT) 130 U/L (16-63) Alkaline Phosphatase 247 U/L (46-116) Troponin I Quantitative < 0.017 ng/mL (0.000-0.055) SG-Tzy-N-Type Natriuretic Peptide 107 pg/mL (0-124) Total Protein 7.3 g/dL (6.4-8.2) Albumin 3.5 g/dL (3.4-5.0) Albumin/Globulin Ratio 0.9 (1.0-1.7) Lipase 86 U/L (73-393) Urine Collection Type Unknown Urine Color Kasey Urine Clarity Clear Urine pH 6.5 (<5.0-8.0) Urine Specific Willard >=1.030 (1.000-1.030) Urine Protein Negative mg/dL (NEG-TRACE) Urine Glucose (UA) Negative mg/dL (NEG) Urine Ketones (Stick) Negative mg/dL (NEG) Urine Blood Negative (NEG) Urine Nitrite Negative (NEG) Urine Bilirubin Large (NEG) Urine Urobilinogen Dipstick 0.2 mg/dL (0.2 mg/dL) Urine Leukocyte Esterase Negative (NEG) Urine RBC 0 /HPF (0-2) Urine WBC Occ /HPF (0-4) Urine Bacteria 0 /HPF (0-FEW) Urine Opiates Screen Pos (NEG) Urine Methadone Screen Pos (NEG) Urine Barbiturates Neg (NEG) Urine Phencyclidine Screen Neg (NEG) Urine Amphetamine/Methamphetamine Neg (NEG) Urine Benzodiazepines Screen Neg (NEG) Urine Cocaine Screen Neg (NEG) Urine Cannabinoids Screen Neg (NEG) Urine Ethyl Alcohol Neg (NEG) SARS-CoV-2 Antigen (Rapid) Negative (NEGATIVE) Test 07/17/20 07:33 White Blood Count 5.5 x10^3/uL (4.0-11.0) Red Blood Count 4.54 x10^6/uL (4.30-5.70) Hemoglobin 14.0 g/dL (13.0-17.5) Hematocrit 41.5 % (39.0-53.0) Mean Corpuscular Volume 92 fL (79-100) Mean Corpuscular Hemoglobin 31 pg (25-35) Mean Corpuscular Hemoglobin Concent 34 g/dL (31-37) Red Cell Distribution Width 14.0 % (11.5-14.5) Platelet Count 111 x10^3/uL (140-400) Neutrophils (%) (Auto) 53 % (31-73) Lymphocytes (%) (Auto) 24 % (24-48) Monocytes (%) (Auto) 19 % (0-9) Eosinophils (%) (Auto) 4 % (0-3) Basophils (%) (Auto) 1 % (0-3) Neutrophils # (Auto) 2.9 x10^3/uL (1.8-7.7) Lymphocytes # (Auto) 1.3 x10^3/uL (1.0-4.8) Monocytes # (Auto) 1.1 x10^3/uL (0.0-1.1) Eosinophils # (Auto) 0.2 x10^3/uL (0.0-0.7) Basophils # (Auto) 0.0 x10^3/uL (0.0-0.2) Sodium Level 136 mmol/L (136-145) Potassium Level 4.0 mmol/L (3.5-5.1) Chloride Level 101 mmol/L (98-107) Carbon Dioxide Level 27 mmol/L (21-32) Anion Gap 8 (6-14) Blood Urea Nitrogen 9 mg/dL (8-26) Creatinine 0.7 mg/dL (0.7-1.3) Estimated GFR (Cockcroft-Gault) 115.0 BUN/Creatinine Ratio 13 (6-20) Glucose Level 98 mg/dL (70-99) Calcium Level 9.0 mg/dL (8.5-10.1) Total Bilirubin 5.8 mg/dL (0.2-1.0) Aspartate Amino Transf (AST/SGOT) 84 U/L (15-37) Alanine Aminotransferase (ALT/SGPT) 108 U/L (16-63) Alkaline Phosphatase 218 U/L (46-116) Total Protein 6.2 g/dL (6.4-8.2) Albumin 2.8 g/dL (3.4-5.0) Albumin/Globulin Ratio 0.8 (1.0-1.7) Medications Current Medications Aspirin (Neurovance Aspirin) 325 mg 1X ONCE PO Last administered on 07/16/20at 13:39; Start 07/16/20 at 13:15; Stop 07/16/20 at 13:16; Status DC Nitroglycerin (Nitrostat) 0.4 mg PRN Q5MIN PRN SL CP RATING > 1/10 Last administered on 07/16/20at 13:40; Start 07/16/20 at 13:15; Stop 07/17/20 at 13:14 Morphine Sulfate (Morphine Sulfate) 2 mg PRN Q15MIN PRN IV/SQ PAIN GREATER THAN 3/10 Last administered on 07/16/20at 13:41; Start 07/16/20 at 13:15; Stop 07/17/20 at 13:14 Diphenhydramine HCl (Benadryl) 25 mg 1X ONCE IVP Last administered on 07/16/20at 13:39; Start 07/16/20 at 13:45; Stop 07/16/20 at 13:46; Status DC Iohexol (Omnipaque 300 Mg/ml) 75 ml 1X ONCE IV Last administered on 07/16/20at 14:37; Start 07/16/20 at 14:30; Stop 07/16/20 at 14:31; Status DC Info (CONTRAST GIVEN -- Rx MONITORING) 1 each PRN DAILY PRN MC SEE COMMENTS; Start 07/16/20 at 14:30; Stop 07/18/20 at 14:29 Sodium Chloride 1,000 ml @ 1,000 mls/hr 1X ONCE IV Last administered on 07/16/20at 16:01; Start 07/16/20 at 16:00; Stop 07/16/20 at 16:59; Status DC Hydroxyzine HCl (Atarax) 25 mg 1X STAT PO Last administered on 07/16/20at 17:46; Start 07/16/20 at 17:08; Stop 07/16/20 at 17:10; Status DC Sodium Chloride 1,000 ml @ 1,000 mls/hr 1X ONCE IV Last administered on 07/16/20at 17:46; Start 07/16/20 at 17:15; Stop 07/16/20 at 18:14; Status DC Morphine Sulfate (Morphine Sulfate) 4 mg PRN Q2HRS PRN IV PAIN Last administere d on 07/16/20at 21:14; Start 07/16/20 at 17:30 Diphenhydramine HCl (Benadryl) 50 mg PRN Q6HRS PRN IVP ITCHING Last administered on 07/17/20at 03:10; Start 07/16/20 at 17:30 Cholestyramine Resin (Questran Light) 4 gm PRN BID PRN PO ITCHING; Start 07/16/20 at 17:30 Ondansetron HCl (Zofran) 4 mg PRN Q8HRS PRN IV NAUSEA/VOMITING; Start 07/16/20 at 18:30; Stop 07/17/20 at 18:29 Fentanyl Citrate (Fentanyl 2ml Vial) 50 mcg PRN Q1HR PRN IV PAIN Last administered on 07/17/20at 03:10; Start 07/16/20 at 18:30; Stop 07/17/20 at 18:29 Sodium Chloride 1,000 ml @ 125 mls/hr 1X ONCE IV Last administered on 07/16/20at 21:10; Start 07/16/20 at 18:30; Stop 07/17/20 at 02:29; Status DC Ondansetron HCl (Zofran) 4 mg PRN Q6HRS PRN IVP NAUSEA/VOMITING Last administered on 07/16/20at 21:13; Start 07/16/20 at 19:00 Al Hydroxide/Mg Hydroxide (Mylanta Plus Xs) 30 ml PRN Q3HRS PRN PO HEARTBURN / GAS; Start 07/16/20 at 19:00 Calcium Carbonate/ Glycine (Tums) 500 mg PRN Q3HRS PRN PO UPSET STOMACH; Start 07/16/20 at 19:00 Zolpidem Tartrate (Ambien) 5 mg PRN QHS PRN PO INSOMNIA, MAY REPEAT IN 1HR Last administered on 07/16/20at 21:12; Start 07/16/20 at 19:00 Magnesium Hydroxide (Milk Of Magnesia) 2,400 mg PRN Q12HR PRN PO CONSTIPATION; Start 07/16/20 at 19:00 Bisacodyl (Dulcolax Supp) 10 mg PRN DAILY PRN [place] CONSTIPATION; Start 07/16/20 at 19:00 Heparin Sodium (Porcine) (Heparin Sodium) 5,000 unit Q8HRS SQ Last administered on 07/16/20at 21:16; Start 07/16/20 at 22:00 Pantoprazole Sodium (PROTONIX VIAL for IV PUSH) 40 mg DAILYAC IVP ; Start 07/17/20 at 10:00 Active Scripts Active Reported Methadone Hcl 10 Mg Tablet 10 Mg PO BID Vitals/I & O Vital Sign - Last 24 Hours 07/16/20 07/16/20 07/16/20 07/16/20 12:40 12:49 13:19 13:38 Temp 98.7 98.7 Pulse 67 77 74 66 Resp 20 B/P (MAP) 161/106 (124) 161/106 (124) 151/87 (108) 158/94 (115) Pulse Ox 99 99 99 98 O2 Delivery Room Air Room Air Room Air Room Air 07/16/20 07/16/20 07/16/20 07/16/20 13:40 13:41 13:49 14:03 Pulse 73 77 48 Resp 18 B/P (MAP) 158/94 153/95 (114) 130/80 (97) Pulse Ox 98 99 98 O2 Delivery Room Air Room Air Room Air 07/16/20 07/16/20 07/16/20 07/16/20 14:19 15:04 16:04 16:34 Pulse 59 61 55 57 B/P (MAP) 132/82 (99) 127/60 (82) 118/68 (85) 137/65 (89) Pulse Ox 95 97 96 95 O2 Delivery Room Air Room Air Room Air Room Air 07/16/20 07/16/20 07/16/20 07/16/20 17:34 18:34 19:04 19:34 Pulse 57 57 56 58 Resp 20 19 B/P (MAP) 160/86 (110) 150/72 (98) 148/64 (92) 157/84 (108) Pulse Ox 96 95 98 97 O2 Delivery Room Air Room Air Room Air Room Air 07/16/20 07/16/20 07/16/20 07/16/20 20:30 20:30 21:14 21:44 Temp 97.7 97.7 Pulse 54 Resp 20 18 18 B/P (MAP) 149/74 (99) Pulse Ox 98 97 97 O2 Delivery Room Air 07/16/20 07/17/20 07/17/20 07/17/20 23:00 03:00 03:10 03:40 Temp 97.9 98.1 97.9 98.1 Pulse 65 61 Resp 16 18 18 18 B/P (MAP) 139/68 (91) 136/75 (95) Pulse Ox 97 96 97 97 O2 Delivery Room Air Room Air 07/17/20 07:00 Temp 98.0 98.0 Pulse 63 Resp 18 B/P (MAP) 111/65 (80) Pulse Ox 95 O2 Delivery Room Air Intake and Output 07/16/20 07/16/20 07/17/20 15:00 23:00 07:00 Intake Total 2480 ml 480 ml Balance 2480 ml 480 ml Justicifation of Admission Dx: Justifications for Admission: Justification of Admission Dx: Yes Comments: Choledocholithiasis MAYANK ARITA MD Jul 17, 2020 09:24
[2020-07-17] MEDS: PANTOPRAZOLE IV PUSH 40 MG VIAL. IVP SCH (09:29)
[2020-07-17] MEDS ORDERED: hydrOXYzine 25 MG TABLET PO PRN (09:30)
[2020-07-17] MEDS ORDERED: NALOXONE 0.4 MG/ML VIAL. IV PRN (09:30)
[2020-07-17 10:44] LABS: % LYMPHS 22 % (24-48); % MONOS 17 % (0-10); % SEGS 61 % (35-66)
[2020-07-17 10:46] LABS: TARGET CELLS FEW
[2020-07-17 10:49] LABS: PLT ESTIMATE ADEQUATE (ADEQUATE)
[2020-07-17 10:50] LABS: POIKILOCYTOSIS SLIGHT
--- NOTE | 2020-07-17 10:57 | NUR ---
SW following. Discussed with RN, pt from home, room air, regular diet, rapid COVID-19 negative. PAT consult for meth and opiates. GI and surgery following. Possible MRCP. SW will continue to follow. Addendum: 07/17/20 at 1459 by LEONARD CAPELLAN SW Javier FENTON) met with pt, pt is on methadone. No MH needs. Cleared by EDUARD. No further SW needs at this time.
[2020-07-17] MEDS: IV NORMAL SALINE 1000ML BAG 1,000 ML IV SCH (12:47)
[2020-07-17] MEDS ORDERED: IOHEXOL 300 MG/ML 100ML VIAL. ONE (13:37)
[2020-07-17] MEDS: DIPHENHYDRAMINE/ZINC ACETATE 2%/0.1% TOPICAL CREAM 28GM TUBE. TP PRN ×2 (13:59→20:18)
[2020-07-17] MEDS ORDERED: IV RINGERS,LACTATED 1000ML 1,000 ML IV SCH (14:15)
--- NOTE | 2020-07-17 14:20 | NUR ---
1400 dose of SQ Heparin was non administered due to patient having an ERCP at 1600 today.
[2020-07-17 14:51] LABS: PROTHROMBIN TIME PATIENT 12.3 SEC (11.7-14.0)
[2020-07-17] MEDS ORDERED: LIDOCAINE 2% PF 5 ML VIAL. ONE (15:37)
[2020-07-17] MEDS ORDERED: ONDANSETRON PF 4 MG/2 ML VIAL. ONE (15:37)
[2020-07-17] MEDS ORDERED: DEXAMETHASONE SOD PHOS 4 MG/ML VIAL ONE (15:37)
[2020-07-17] MEDS ORDERED: PROPOFOL 10 MG/ML (20ML) VIAL. IV ONE (15:37)
[2020-07-17] MEDS ORDERED: SEVOFLURANE 31 TO 60 MINUTES. IH ONE (15:37)
[2020-07-17] MEDS ORDERED: GLYCOPYRROLATE 1 MG/5 ML VIAL. ONE (15:38)
[2020-07-17] MEDS ORDERED: ROCURONIUM 50 MG/5 ML VIAL. ONE (15:38)
[2020-07-17] MEDS ORDERED: NEOSTIGMINE METHYLSULFATE 5 MG/5 ML SYRINGE. ONE (15:38)
[2020-07-17] MEDS ORDERED: PHENYLEPHRINE in 0.9% NACL PF 1 MG/10 ML SYRINGE. IV ONE (15:39)
--- NOTE | 2020-07-17 16:55 | PDOC4 ---
Operative Note Operative Note ERCP with sphincterotomy and stone removal Meds propofol per anesthesia Pre-op dx Jaundice/abnl Ct scan Post-op dx choledocholithiasis s/p sphincterotomy stone extractions cholangitis with obstructed cystic duct Plan serial labs antibiotics lap jose for acute cholecystitis/cholangitis BRYSON GUEVARA MD Jul 17, 2020 16:55
--- NOTE | 2020-07-17 17:35 | RAD ---
Fluoroscopic-guided ERCP COMPARISON: Abdominal ultrasound of 07/16/2020 [address] abdomen [address] pelvis CT with IV contrast of 07/16/2020 TECHNIQUE AND FINDINGS: A total of 134.3 seconds of fluoroscopy time was utilized during endoscopic retrograde cholangiograph y and 9 images were acquired for procedural documentation. These show retrograde cannulation of the dilated common bile duct with opacification of the proximal dilated left hepatic ducts and poor opacification of the right hepatic ducts. There was nonopacificat ion of the gallbladder lumen. Multiple filling defects within the common bile duct are present and co uld represent stones or sludge. IMPRESSION: ERCP showing dilated common bile duct with nonfilling of the cystic duct and poor filling of the righ t hepatic ducts. Please see the intraoperative note for additional details. Electronically signed by: Ta Oneill MD (07/17/2020 5:33 PM) [id number]
[2020-07-17] MEDS: CIPROFLOXACIN 400MG PREMIX 200 ML IV SCH (17:46)
[2020-07-17] MEDS: MORPHINE SULFATE 4 MG/ML VIAL. IV PRN ×2 (20:15→23:14)
[2020-07-17] MEDS: ZOLPIDEM 5 MG TABLET. PO PRN ×2 (20:15→23:15)
[2020-07-18] MEDS: IV NORMAL SALINE 1000ML BAG 1,000 ML IV SCH ×3 (02:05→22:45)
[2020-07-18 03:00] VITALS: BP 119/75
[2020-07-18] MEDS: HEPARIN for SUB-Q USE 5,000 UNIT/ML VIAL. SQ SCH ×3 (05:26→22:00)
[2020-07-18] MEDS: PANTOPRAZOLE IV PUSH 40 MG VIAL. IVP SCH (05:29)
[2020-07-18 07:00] VITALS: BP 130/79
[2020-07-18] MEDS: CIPROFLOXACIN 400MG PREMIX 200 ML IV SCH ×3 (08:07→20:44)
[2020-07-18] MEDS: MORPHINE SULFATE 4 MG/ML VIAL. IV PRN ×3 (08:12→20:53)
[2020-07-18 08:40] LABS: BASO % 0 % (0-3); EOS % 0 % (0-3); HEMATOCRIT 43.4 % (39.0-53.0); HEMOGLOBIN 14.6 g/dL (13.0-17.5); LYMPH # 1.1 x10^3/uL (1.0-4.8); LYMPH % 12 % (24-48); MEAN CORPUSCULAR HEMOGLOBIN 31 pg (25-35); MEAN CORPUSCULAR HGB CONC 34 g/dL (31-37); MEAN CORPUSCULAR VOLUME 92 fL (79-100); MONO # 0.8 x10^3/uL (0.0-1.1); MONO % 9 % (0-9); NEUT # 7.4 x10^3/uL (1.8-7.7); NEUT % 79 % (31-73); PLATELET COUNT 135 x10^3/uL (140-400); RED BLOOD COUNT 4.73 x10^6/uL (4.30-5.70); RED CELL DISTRIBUTION WIDTH 14.2 % (11.5-14.5); WHITE BLOOD COUNT 9.3 x10^3/uL (4.0-11.0)
--- NOTE | 2020-07-18 08:41 | PDOC ---
PROGRESS NOTES Date of Service: DATE: 07/18/20 TIME: 08:40 Chief Complaint Chief Complaint Choledocholithiasis s/p ERCP with stone removal Hyperbilirubinemia secondary to the above, dilated CBD with unknown etiology, patient fears cancer, reassurance provided Overweight Hepatic steatosis Family history of GI cancers in the family Plan: Naloxone for pruritus will switch to Atarax for pruritus; cholestyramine 4g p.o. twice daily as needed itching will undergo cholecystectomy today Morphine and Zofran as needed FEN - Regular diet PPX - Heparin FULL CODE Dispo - inpatient for above History of Present Illness History of Present Illness History of Present Illness Patient is a 60-year-old male with past medical history chronic pain on methadone, constipation, who was sent to the ER for further evaluation after he was noted to had elevated liver enzymes. She reports intermittent upper abdominal pain, generalized pruritus, yellowing of his skin and sclera over the past week. He was seen by his PCP for the symptoms 2 days ago and told to re port to the ER for his transaminitis and hyperbilirubinemia. Imaging obtained in the ED showed dilated gallbladder with large amount of gallbladder sludge and dilated common bile duct. General surgery was contacted by ED, and patient was recommended to be NPO after midnight for possible surgical procedure. Patient also notes blood in his stool and blood in his urine over the past week. UA on admission is negative for blood but does show large bilirubin. Hemoglobin within normal limits. Will admit patient for further medical management. 07/17: Patient quite tearful during the encounter since he feels like his cat cancer in his quite irritated by the itchiness. GI method consultant at bedside we have discussed the plan of care in detail greater than 40 minutes were spent in the care of the patient in [id number] contact counseling coordination of care and formulation of the treatment plan 07/18: No acute events reported overnight, case discussed with nursing staff patient in no acute distress no complaints during my visit Vitals Vitals Vital Signs Date Time Temp Pulse Resp B/P (MAP) Pulse Ox O2 Delivery O2 Flow Rate FiO2 07/18/20 08:12 Room Air 07/18/20 07:00 97.6 62 18 130/79 (96) 90 97.6 07/17/20 23:44 3.0 Physical Exam General: Alert, Oriented X3, Cooperative Heart: Regular rate, Normal S1, Normal S2 Abdomen: Soft, Other (mild ttp RUQ) Extremities: No clubbing, No cyanosis Skin: No rashes, No breakdown Review of Systems Review of Systems Review of systems pertinent as per HPI otherwise 14 point review of system is negative Assessment and Plan Assessmemt and Plan Problems Medical Problems: (1) Choledocholithiasis Status: Acute (2) Elevated bilirubin Status: Acute (3) Transaminitis Status: Acute Comment Review of Relevant I have reviewed the following items john (where applicable) has been applied. Labs Laboratory Tests Test 07/16/20 13:10 07/16/20 13:50 07/16/20 15:30 07/16/20 17:50 White Blood Count 6.4 x10^3/uL (4.0-11.0) Red Blood Count 4.83 x10^6/uL (4.30-5.70) Hemoglobin 14.8 g/dL (13.0-17.5) Hematocrit 44.1 % (39.0-53.0) Mean Corpuscular Volume 91 fL (79-100) Mean Corpuscular Hemoglobin 31 pg (25-35) Mean Corpuscular Hemoglobin Concent 34 g/dL (31-37) Red Cell Distribution Width 14.0 % (11.5-14.5) Platelet Count 151 x10^3/uL (140-400) Neutrophils (%) (Auto) 62 % (31-73) Lymphocytes (%) (Auto) 18 % (24-48) Monocytes (%) (Auto) 18 % (0-9) Eosinophils (%) (Auto) 2 % (0-3) Basophils (%) (Auto) 0 % (0-3) Neutrophils # (Auto) 4.0 x10^3/uL (1.8-7.7) Lymphocytes # (Auto) 1.2 x10^3/uL (1.0-4.8) Monocytes # (Auto) 1.1 x10^3/uL (0.0-1.1) Eosinophils # (Auto) 0.2 x10^3/uL (0.0-0.7) Basophils # (Auto) 0.0 x10^3/uL (0.0-0.2) D-Dimer ([place]) 0.34 ug/mlFEU (0.00-0.50) Sodium Level 134 mmol/L (136-145) Potassium Level 4.4 mmol/L (3.5-5.1) Chloride Level 101 mmol/L (98-107) Carbon Dioxide Level 28 mmol/L (21-32) Anion Gap 5 (6-14) Blood Urea Nitrogen 13 mg/dL (8-26) Creatinine 0.7 mg/dL (0.7-1.3) Estimated GFR (Cockcroft-Gault) 115.0 BUN/Creatinine Ratio 19 (6-20) Glucose Level 101 mg/dL (70-99) Calcium Level 9.2 mg/dL (8.5-10.1) Magnesium Level 2.2 mg/dL (1.8-2.4) Total Bilirubin 6.3 mg/dL (0.2-1.0) Aspartate Amino Transf (AST/SGOT) 87 U/L (15-37) Alanine Aminotransferase (ALT/SGPT) 130 U/L (16-63) Alkaline Phosphatase 247 U/L (46-116) Troponin I Quantitative < 0.017 ng/mL (0.000-0.055) OQ-Dnq-K-Type Natriuretic Peptide 107 pg/mL (0-124) Total Protein 7.3 g/dL (6.4-8.2) Albumin 3.5 g/dL (3.4-5.0) Albumin/Globulin Ratio 0.9 (1.0-1.7) Lipase 86 U/L (73-393) Urine Collection Type Unknown Urine Color [place] Urine Clarity Clear Urine pH 6.5 (<5.0-8.0) Urine Specific Cameron >=1.030 (1.000-1.030) Urine Protein Negative mg/dL (NEG-TRACE) Urine Glucose (UA) Negative mg/dL (NEG) Urine Ketones (Stick) Negative mg/dL (NEG) Urine Blood Negative (NEG) Urine Nitrite Negative (NEG) Urine Bilirubin Large (NEG) Urine Urobilinogen Dipstick 0.2 mg/dL (0.2 mg/dL) Urine Leukocyte Esterase Negative (NEG) Urine RBC 0 /HPF (0-2) Urine WBC Occ /HPF (0-4) Urine Bacteria 0 /HPF (0-FEW) Urine Opiates Screen Pos (NEG) Urine Methadone Screen Pos (NEG) Urine Barbiturates Neg (NEG) Urine Phencyclidine Screen Neg (NEG) Urine Amphetamine/Methamphetamine Neg (NEG) Urine Benzodiazepines Screen Neg (NEG) Urine Cocaine Screen Neg (NEG) Urine Cannabinoids Screen Neg (NEG) Urine Ethyl Alcohol Neg (NEG) Coronavirus (PCR) Not detected (Not Detected) SARS-CoV-2 Antigen (Rapid) Negative (NEGATIVE) Test 07/17/20 07:33 White Blood Count 5.5 x10^3/uL (4.0-11.0) Red Blood Count 4.54 x10^6/uL (4.30-5.70) Hemoglobin 14.0 g/dL (13.0-17.5) Hematocrit 41.5 % (39.0-53.0) Mean Corpuscular Volume 92 fL (79-100) Mean Corpuscular Hemoglobin 31 pg (25-35) Mean Corpuscular Hemoglobin Concent 34 g/dL (31-37) Red Cell Distribution Width 14.0 % (11.5-14.5) Platelet Count 111 x10^3/uL (140-400) Neutrophils (%) (Auto) 53 % (31-73) Lymphocytes (%) (Auto) 24 % (24-48) Monocytes (%) (Auto) 19 % (0-9) Eosinophils (%) (Auto) 4 % (0-3) Basophils (%) (Auto) 1 % (0-3) Neutrophils # (Auto) 2.9 x10^3/uL (1.8-7.7) Lymphocytes # (Auto) 1.3 x10^3/uL (1.0-4.8) Monocytes # (Auto) 1.1 x10^3/uL (0.0-1.1) Eosinophils # (Auto) 0.2 x10^3/uL (0.0-0.7) Basophils # (Auto) 0.0 x10^3/uL (0.0-0.2) Segmented Neutrophils % 61 % (35-66) Lymphocytes % 22 % (24-48) Monocytes % 17 % (0-10) Platelet Estimate Adequate (ADEQUATE) Poikilocytosis Slight Target Cells Few Prothrombin Time 12.3 SEC (11.7-14.0) Prothromb Time International Ratio 1.0 (0.8-1.1) Sodium Level 136 mmol/L (136-145) Potassium Level 4.0 mmol/L (3.5-5.1) Chloride Level 101 mmol/L (98-107) Carbon Dioxide Level 27 mmol/L (21-32) Anion Gap 8 (6-14) Blood Urea Nitrogen 9 mg/dL (8-26) Creatinine 0.7 mg/dL (0.7-1.3) Estimated GFR (Cockcroft-Gault) 115.0 BUN/Creatinine Ratio 13 (6-20) Glucose Level 98 mg/dL (70-99) Calcium Level 9.0 mg/dL (8.5-10.1) Total Bilirubin 5.8 mg/dL (0.2-1.0) Aspartate Amino Transf (AST/SGOT) 84 U/L (15-37) Alanine Aminotransferase (ALT/SGPT) 108 U/L (16-63) Alkaline Phosphatase 218 U/L (46-116) Total Protein 6.2 g/dL (6.4-8.2) Albumin 2.8 g/dL (3.4-5.0) Albumin/Globulin Ratio 0.8 (1.0-1.7) Medications Current Medications Aspirin ([employer] Aspirin) 325 mg 1X ONCE PO Last administered on 07/16/20at 13:39; Start 07/16/20 at 13:15; Stop 07/16/20 at 13:16; Status DC Nitroglycerin (Nitrostat) 0.4 mg PRN Q5MIN PRN SL CP RATING > 1/10 Last administered on 07/16/20at 13:40; Start 07/16/20 at 13:15; Stop 07/17/20 at 13:14; Status DC Morphine Sulfate (Morphine Sulfate) 2 mg PRN Q15MIN PRN IV/SQ PAIN GREATER THAN 3/10 Last administered on 07/16/20at 13:41; Start 07/16/20 at 13:15; Stop 07/17/20 at 11:46; Status DC Diphenhydramine HCl (Benadryl) 25 mg 1X ONCE IVP Last administered on 07/16/20at 13:39; Start 07/16/20 at 13:45; Stop 07/16/20 at 13:46; Status DC Iohexol (Omnipaque 300 Mg/ml) 75 ml 1X ONCE IV Last administered on 07/16/20at 14:37; Start 07/16/20 at 14:30; Stop 07/16/20 at 14:31; Status DC Info (CONTRAST GIVEN -- Rx MONITORING) 1 each PRN DAILY PRN MC SEE COMMENTS; Start 07/16/20 at 14:30; Stop 07/18/20 at 14:29 Sodium Chloride 1,000 ml @ 1,000 mls/hr 1X ONCE IV Last administered on 07/16/20at 16:01; Start 07/16/20 at 16:00; Stop 07/16/20 at 16:59; Status DC Hydroxyzine HCl (Atarax) 25 mg 1X STAT PO Last administered on 07/16/20at 17:46; Start 07/16/20 at 17:08; Stop 07/16/20 at 17:10; Status DC Sodium Chloride 1,000 ml @ 1,000 mls/hr 1X ONCE IV Last administered on 07/16/20at 17:46; Start 07/16/20 at 17:15; Stop 07/16/20 at 18:14; Status DC Morphine Sulfate (Morphine Sulfate) 4 mg PRN Q2HRS PRN IV PAIN Last administered on 07/18/20at 08:12; Start 07/16/20 at 17:30 Diphenhydramine HCl (Benadryl) 50 mg PRN Q6HRS PRN IVP ITCHING Last administered on 07/17/20at 09:29; Start 07/16/20 at 17:30; Stop 07/17/20 at 09:35; Status DC Cholestyramine Resin (Questran Light) 4 gm PRN BID PRN PO ITCHING; Start 07/16/20 at 17:30 Ondansetron HCl (Zofran) 4 mg PRN Q8HRS PRN IV NAUSEA/VOMITING; Start 07/16/20 at 18:30; Stop 07/17/20 at 11:47; Status DC Fentanyl Citrate (Fentanyl 2ml Vial) 50 mcg PRN Q1HR PRN IV PAIN Last administered on 07/17/20at 03:10; Start 07/16/20 at 18:30; Stop 07/17/20 at 18:29; Status DC Sodium Chloride 1,000 ml @ 125 mls/hr 1X ONCE IV Last administered on 07/16/20at 21:10; Start 07/16/20 at 18:30; Stop 07/17/20 at 02:29; Status DC Ondansetron HCl (Zofran) 4 mg PRN Q6HRS PRN IVP NAUSEA/VOMITING Last administered on 07/16/20at 21:13; Start 07/16/20 at 19:00 Al Hydroxide/Mg Hydroxide (Mylanta Plus Xs) 30 ml PRN Q3HRS PRN PO HEARTBURN / GAS; Start 07/16/20 at 19:00 Calcium Carbonate/ Glycine (Tums) 500 mg PRN Q3HRS PRN PO UPSET STOMACH; Start 07/16/20 at 19:00 Zolpidem Tartrate (Ambien) 5 mg PRN QHS PRN PO INSOMNIA, MAY REPEAT IN 1HR Last administered on 07/17/20at 23:15; Start 07/16/20 at 19:00 Magnesium Hydroxide (Milk Of Magnesia) 2,400 mg PRN Q12HR PRN PO CONSTIPATION; Start 07/16/20 at 19:00 Bisacodyl (Dulcolax Supp) 10 mg PRN DAILY PRN SC CONSTIPATION; Start 07/16/20 at 19:00 Heparin Sodium (Porcine) (Heparin Sodium) 5,000 unit Q8HRS SQ Last administered on 07/17/20at 20:17; Start 07/16/20 at 22:00 Pantoprazole Sodium (PROTONIX VIAL for IV PUSH) 40 mg DAILYAC IVP Last administered on 07/18/20at 05:29; Start 07/17/20 at 10:00 Hydroxyzine HCl (Atarax) 25 mg PRN Q6HRS PRN PO ITCHING Last administered on 07/17/20at 20:15; Start 07/17/20 at 09:30 Naloxone HCl (Narcan) 0.4 mg PRN Q2HRS PRN IV SEE COMMENTS; Start 07/17/20 at 09:30 Zinc Acetate/ Diphenhydramine (Benadryl Topical) 1 marylou PRN Q4HRS PRN TP pruritus Last administered on 07/17/20at 20:18; Start 07/17/20 at 09:45 Sodium Chloride 1,000 ml @ 75 mls/hr [id number] IV Last administered on 07/18/20at 02:05; Start 07/17/20 at 12:00 Iohexol (Omnipaque 300 Mg/ml) 100 ml STK-MED ONCE .ROUTE ; Start 07/17/20 at 13:37; Stop 07/17/20 at 13:37; Status DC Ringer's Solution 1,000 ml @ 50 mls/hr Q20H IV Last administered on 07/17/20at 15:21; Start 07/17/20 at 14:15; Stop 07/18/20 at 02:14; Status DC Ondansetron HCl (Zofran) 4 mg STK-MED ONCE .ROUTE ; Start 07/17/20 at 15:37; Stop 07/17/20 at 15:38; Status DC Propofol (Diprivan) 200 mg STK-MED ONCE IV ; Start 07/17/20 at 15:37; Stop 07/17/20 at 15:38; Status DC Lidocaine HCl (Lidocaine Pf 2% Vial) 5 ml STK-MED ONCE .ROUTE ; Start 07/17/20 at 15:37; Stop 07/17/20 at 15:38; Status DC Dexamethasone Sodium Phosphate (Decadron) 4 mg STK-MED ONCE .ROUTE ; Start 07/17/20 at 15:37; Stop 07/17/20 at 15:38; Status DC Sevoflurane (Ultane) 30 ml STK-MED ONCE IH ; Start 07/17/20 at 15:37; Stop 07/17/20 at 15:38; Status DC Glycopyrrolate (Robinul) 1 mg STK-MED ONCE .ROUTE ; Start 07/17/20 at 15:38; Stop 07/17/20 at 15:38; Status DC Neostigmine [place] (Neostigmine Methylsulfate) 5 mg STK-MED ONCE .ROUTE ; Start 07/17/20 at 15:38; Stop 07/17/20 at 15:38; Status DC Rocuronium [place] (Zemuron) 50 mg STK-MED ONCE .ROUTE ; Start 07/17/20 at 15:38; Stop 07/17/20 at 15:39; Status DC Phenylephrine HCl (PHENYLEPHRINE in 0.9% NACL PF) 1 mg STK-MED ONCE IV ; Start 07/17/20 at 15:39; Stop 07/17/20 at 15:39; Status DC Ciprofloxacin/ Dextrose 200 ml @ 200 mls/hr Q12HR IV Last administered on 07/18/20at 08:07; Start 07/17/20 at 18:00 Active Scripts Active Reported Methadone Hcl 10 Mg Tablet 10 Mg PO BID Vitals/I & O Vital Sign - Last 24 Hours 07/17/20 07/17/20 07/17/20 07/17/20 11:00 15:15 15:16 16:58 Temp 98.7 97.8 98.7 97.8 Pulse 72 83 80 Resp 16 20 20 B/P (MAP) 124/82 (96) 155/85 Pulse Ox 96 99 100 O2 Delivery Room Air Room Air Nasal Cannula O2 Flow Rate 3 07/17/20 07/17/20 07/17/20 07/17/20 17:15 17:50 18:05 18:20 Pulse 81 80 81 80 Resp 20 B/P (MAP) 132/78 141/91 (108) 143/81 (101) 138/71 (93) Pulse Ox 98 O2 Delivery Room Air 07/17/20 07/17/20 07/17/20 07/17/20 18:35 19:00 19:05 19:35 Temp 98.7 98.7 Pulse 81 86 89 89 Resp 18 B/P (MAP) 132/72 (92) 143/79 (100) 138/71 (93) 132/72 (92) O2 Delivery Room Air Room Air Room Air 07/17/20 07/17/20 07/17/20 07/17/20 20:00 20:05 20:15 20:45 Pulse 101 Resp 18 18 B/P (MAP) 139/84 (102) Pulse Ox 98 98 O2 Delivery Room Air Room Air Room Air Room Air 07/17/20 07/17/20 07/17/20 07/18/20 23:00 23:14 23:44 03:00 Temp 97.6 98.5 97.6 98.5 Pulse 87 80 Resp 18 18 18 B/P (MAP) 130/78 (95) 119/75 (90) Pulse Ox 93 98 98 95 O2 Delivery Room Air Room Air Room Air Room Air O2 Flow Rate 3.0 07/18/20 07/18/20 07:00 08:12 Temp 97.6 97.6 Pulse 62 Resp 18 B/P (MAP) 130/79 (96) Pulse Ox 90 O2 Delivery Room Air Room Air Intake and Output 07/17/20 07/17/20 07/18/20 15:00 23:00 07:00 Intake Total 500 ml Output Total 450 ml Balance 500 ml -450 ml Justicifation of Admission Dx: Justifications for Admission: Justification of Admission Dx: Yes MAYANK ARITA MD Jul 18, 2020 08:41
[2020-07-18 09:16] LABS: ALBUMIN 2.9 g/dL (3.4-5.0); ALBUMIN/GLOBULIN RATIO 0.8 (1.0-1.7); CALCIUM 9.3 mg/dL (8.5-10.1); CREATININE 0.9 mg/dL (0.7-1.3); GFR 86.1; POTASSIUM 4.4 mmol/L (3.5-5.1); TOTAL BILIRUBIN 3.9 mg/dL (0.2-1.0); TOTAL PROTEIN 6.7 g/dL (6.4-8.2)
[2020-07-18] MEDS: DIPHENHYDRAMINE/ZINC ACETATE 2%/0.1% TOPICAL CREAM 28GM TUBE. TP PRN (10:18)
[2020-07-18] MEDS ORDERED: HYDROmorphone 2 MG/ML VIAL IVP PRN (10:45)
[2020-07-18] MEDS ORDERED: MORPHINE SULFATE 2 MG/ML VIAL. IVP PRN (10:45)
[2020-07-18] MEDS ORDERED: fentaNYL PF VIAL 100 MCG/2 ML VIAL IVP PRN ×2 (10:45)
[2020-07-18] MEDS ORDERED: PROCHLORPERAZINE 10 MG/2 ML VIAL. IVP PRN (10:45)
[2020-07-18 11:00] VITALS: BP 148/83
[2020-07-18] MEDS ORDERED: ONDANSETRON PF 4 MG/2 ML VIAL. ONE (11:52)
[2020-07-18] MEDS ORDERED: DEXAMETHASONE SOD PHOS 20 MG/5 ML VIAL. ONE (11:52)
[2020-07-18] MEDS ORDERED: ROCURONIUM 50 MG/5 ML VIAL. ONE (11:52)
[2020-07-18] MEDS ORDERED: LIDOCAINE 2% PF 5 ML VIAL. ONE (11:52)
[2020-07-18] MEDS ORDERED: PROPOFOL 10 MG/ML (20ML) VIAL. IV ONE (11:52)
[2020-07-18] MEDS ORDERED: fentaNYL PF VIAL 100 MCG/2 ML VIAL ONE (11:53)
[2020-07-18] MEDS ORDERED: BUPIVACAINE MPF 0.5% 30 ML VIAL. ONE (12:10)
[2020-07-18] MEDS ORDERED: IOHEXOL 300 MG/ML 50 ML VIAL. ONE (12:10)
[2020-07-18] MEDS ORDERED: SURGICEL HEMOSTAT 4X8 EACH. ONE (12:10)
[2020-07-18] MEDS ORDERED: SUCCINYLCHOLINE 200 MG/10 ML VIAL. ONE (12:22)
[2020-07-18] MEDS ORDERED: GLYCOPYRROLATE 1 MG/5 ML VIAL. ONE (12:23)
[2020-07-18] MEDS ORDERED: NEOSTIGMINE METHYLSULFATE 5 MG/5 ML SYRINGE. ONE (12:24)
[2020-07-18] MEDS: IV RINGERS,LACTATED 1000ML 1,000 ML IV SCH ×2 (12:37→14:24)
[2020-07-18] MEDS ORDERED: PHENYLEPHRINE in 0.9% NACL PF 1 MG/10 ML SYRINGE. IV ONE (13:17)
--- NOTE | 2020-07-18 14:27 | PDOC4 ---
Operative Note Operative Note Operative Note: Preoperative Diagnosis: Acute cholecystitis Postoperative Diagnosis: Same Procedure: Laparoscopic cholecystectomy with intraoperative cholangiogram Surgeons: Iraj Cast Iron Drain Pipe Layer: Jose L ESTRADA Anesthesia: Gen. Estimated Blood Loss: 25 mL Specimen: Gallbladder to pathology Drains: None Complications: None Indications: The patient is a 60-year-old male who was admitted with abdominal pain and jaundice. He underwent an ERCP with stone extraction from the common bile duct. The plan is to proceed with a laparoscopic cholecystectomy. The risks of surgery were discussed which include bleeding, infection, bile duct injury, bile leak, pain, the potential for additional surgeries or procedures. The patient understands and would like to proceed. Description: The patient was taken to the operating room and laid supine on the operating table. General anesthesia was performed. The abdomen was prepped with ChloraPrep and draped in a standard surgical fashion. A small incision was made in the right abdomen through which a visualized 5 mm trocar was inserted. Pneumoperitoneum was created and the laparoscope was introduced. In the upper midabdomen an 11 mm trocar was inserted and in the right upper quadrant one 5 mm trocar and one 2.3 mm mini lap grasper were inserted. The gallbladder was inf lamed consistent with acute cholecystitis. Multiple adhesions were freed off the anterior wall of the gallbladder. The gallbladder was retracted cephalad. The cystic duct was dissected free from surrounding tissues. One clip was placed on the duct near the gallbladder junction. An opening was made in the duct and a cholangiocatheter placed within and secured with a clip. Using contrast dye and fluoroscopy an intraoperative cholangiogram was performed that appeared unremarkable. The clip and catheter were then withdrawn. Three clips were placed on the cystic duct and it was divided. The cystic artery was then identified, dissected free, doubly clipped and divided as well. The gallbladder was then mobilized away from the liver with cautery. The gallbladder was then placed in an endoscopic bag and extracted at the superior trocar site. The fascia there was closed with an 0 PDS sutures. All blood and irrigation fluid was suctioned and hemostasis was good. The remaining ports were removed and the pneumoperitoneum was relieved. The skin incisions were injected with half percent Marcaine with epinephrine, and all were closed using 4-0 Monocryl suture. Steri-Strips and dressings were then applied. The patient tolerated the procedure well and was sent to the recovery room in stable condition. At the end of the case all counts were correct. BRYSON CARVAJAL MD Jul 18, 2020 14:27
[2020-07-18] MEDS ORDERED: oxyCODONE/APAP 5/325 1 TAB TABLET PO PRN (14:30)
[2020-07-18 15:00] VITALS: BP_SYST 137; BP_SYST 142; BP_SYST 148; BP_SYST 157; BP_DIAS 70; BP_DIAS 76; BP_DIAS 77; BP_DIAS 78
--- NOTE | 2020-07-18 15:28 | RAD ---
Study: DG INTRAOPERATIVE CHOLANGIOGRAM Indication: Laparoscopic cholecystectomy. Comparison: ERCP 07/17/2020 Findings: Fluoroscopy time: 12 seconds Fluoroscopic images: 4 Ligated cystic duct. Contrast opacification of the common bile duct with extension of contrast into t he duodenum. Please see the surgeons report for a more detailed description of intraoperative finding s. Impression: Intraoperative fluoroscopy in the setting of laparoscopic cholecystectomy. Electronically signed by: PETE GALVEZ MD (07/18/2020 3:25 PM) [id number]
--- NOTE | 2020-07-18 17:18 | PDOC ---
GI PROGRESS NOTES Date of Service: Date/Time DATE: 07/18/20 TIME: 17:16 Subjective Subjective Sore from cholecystectomy earlier today. Tolerating liquid diet. Objective Vitals Vital Signs Date Time Temp Pulse Resp B/P (MAP) Pulse Ox O2 Delivery O2 Flow Rate FiO2 07/18/20 17:00 Nasal Cannula 07/18/20 15:02 97.3 78 20 132/76 96 Nasal Cannula 2 97.3 07/18/20 15:00 97.2 77 18 142/70 (94) 96 Nasal Cannula 2.0 97.2 07/18/20 14:57 Mask 10 07/18/20 14:47 83 20 157/72 97 Simple Mask 10 07/18/20 14:32 81 20 133/64 95 Simple Mask 10 07/18/20 14:29 76 20 123/57 100 Simple Mask 10 07/18/20 14:29 Mask 10 07/18/20 12:33 98.4 91 134/78 98 Room Air 3 98.4 07/18/20 12:26 98.4 91 20 98 98.4 07/18/20 11:00 98.0 87 18 148/83 (104) 96 Room Air 98.0 07/18/20 08:12 Room Air 07/18/20 08:00 Room Air 07/18/20 07:00 97.6 62 18 130/79 (96) 90 Room Air 97.6 07/18/20 03:00 98.5 80 18 119/75 (90) 95 Room Air 98.5 07/17/20 23:44 98 Room Air 3.0 07/17/20 23:14 18 98 Room Air 07/17/20 23:00 97.6 87 18 130/78 (95) 93 Room Air 97.6 07/17/20 20:45 18 98 Room Air 07/17/20 20:15 18 98 Room Air 07/17/20 20:05 101 139/84 (102) Room Air 07/17/20 20:00 Room Air 07/17/20 19:35 89 132/72 (92) Room Air 07/17/20 19:05 89 138/71 (93) Room Air 07/17/20 19:00 98.7 86 18 143/79 (100) Room Air 98.7 07/17/20 18:35 81 132/72 (92) 07/17/20 18:20 80 138/71 (93) 07/17/20 18:05 81 143/81 (101) 07/17/20 17:50 80 141/91 (108) Labs Labs Laboratory Tests Test 07/18/20 07:54 White Blood Count 9.3 x10^3/uL (4.0-11.0) Red Blood Count 4.73 x10^6/uL (4.30-5.70) Hemoglobin 14.6 g/dL (13.0-17.5) Hematocrit 43.4 % (39.0-53.0) Mean Corpuscular Volume 92 fL (79-100) Mean Corpuscular Hemoglobin 31 pg (25-35) Mean Corpuscular Hemoglobin Concent 34 g/dL (31-37) Red Cell Distribution Width 14.2 % (11.5-14.5) Platelet Count 135 x10^3/uL (140-400) Neutrophils (%) (Auto) 79 % (31-73) Lymphocytes (%) (Auto) 12 % (24-48) Monocytes (%) (Auto) 9 % (0-9) Eosinophils (%) (Auto) 0 % (0-3) Basophils (%) (Auto) 0 % (0-3) Neutrophils # (Auto) 7.4 x10^3/uL (1.8-7.7) Lymphocytes # (Auto) 1.1 x10^3/uL (1.0-4.8) Monocytes # (Auto) 0.8 x10^3/uL (0.0-1.1) Eosinophils # (Auto) 0.0 x10^3/uL (0.0-0.7) Basophils # (Auto) 0.0 x10^3/uL (0.0-0.2) Sodium Level 136 mmol/L (136-145) Potassium Level 4.4 mmol/L (3.5-5.1) Chloride Level 100 mmol/L (98-107) Carbon Dioxide Level 28 mmol/L (21-32) Anion Gap 8 (6-14) Blood Urea Nitrogen 15 mg/dL (8-26) Creatinine 0.9 mg/dL (0.7-1.3) Estimated GFR (Cockcroft-Gault) 86.1 BUN/Creatinine Ratio 17 (6-20) Glucose Level 133 mg/dL (70-99) Calcium Level 9.3 mg/dL (8.5-10.1) Total Bilirubin 3.9 mg/dL (0.2-1.0) Aspartate Amino Transf (AST/SGOT) 73 U/L (15-37) Alanine Aminotransferase (ALT/SGPT) 108 U/L (16-63) Alkaline Phosphatase 237 U/L (46-116) Total Protein 6.7 g/dL (6.4-8.2) Albumin 2.9 g/dL (3.4-5.0) Albumin/Globulin Ratio 0.8 (1.0-1.7) Amylase Level 71 U/L (25-115) Lipase 525 U/L (73-393) Physical Exam Physical Exam Chest clear Abdomen soft, bowel sounds present, mildly tender Assessment Assessment Status post cholecystectomy. Acute cholecystitis with prior choledocholithiasis as well. Plan Plan Continue postoperative plans. Justicifation of Admission Dx: Justifications for Admission: Justification of Admission Dx: Yes INEZ GARNER MD Jul 18, 2020 17:18
[2020-07-18 19:00] VITALS: BP 139/77
[2020-07-18] MEDS: ZOLPIDEM 5 MG TABLET. PO PRN (20:53)
[2020-07-18] MEDS: oxyCODONE/APAP 5/325 1 TAB TABLET PO PRN (22:50)
[2020-07-18 23:00] VITALS: BP 154/80
[2020-07-19] MEDS: oxyCODONE/APAP 5/325 1 TAB TABLET PO PRN ×3 (02:43→11:20)
[2020-07-19 03:00] VITALS: BP 160/77
[2020-07-19] MEDS: IV NORMAL SALINE 1000ML BAG 1,000 ML IV SCH (04:32)
[2020-07-19] MEDS: MORPHINE SULFATE 4 MG/ML VIAL. IV PRN (04:37)
[2020-07-19] MEDS: HEPARIN for SUB-Q USE 5,000 UNIT/ML VIAL. SQ SCH (05:36)
[2020-07-19 07:00] VITALS: BP 173/93
[2020-07-19] MEDS: PANTOPRAZOLE IV PUSH 40 MG VIAL. IVP SCH (07:32)
[2020-07-19] MEDS: CIPROFLOXACIN 400MG PREMIX 200 ML IV SCH (08:13)
[2020-07-19 11:00] VITALS: BP 158/83
[2020-07-19] MEDS ORDERED: ONDA4TAB7 PO (11:35)
[2020-07-19] MEDS ORDERED: OXYC1TAB15 PO (11:35)
--- NOTE | 2020-07-19 11:39 | PDOC3 ---
Discharge Summary Visit Information Date of Admission: Jul 16, 2020 Date of Discharge: Jul 19, 2020 Admitting Diagnosis Comment: Dilated gallbladder with biliary sludge Hyperbilirubinemia Final Diagnosis Problems Medical Problems: (1) Choledocholithiasis Status: Acute (2) Elevated bilirubin Status: Acute (3) Transaminitis Status: Acute Choledocholithiasis s/p ERCP with stone removal and CHolecystectomy Hyperbilirubinemia secondary to the above, dilated CBD with unknown etiology, patient fears cancer, reassurance provided Overweight Hepatic steatosis Family history of GI cancers in the family Brief Hospital Course Allergies Allergies Coded Allergies Type Severity Reaction Last Updated Verified Penicillins Allergy Intermediate 07/18/20 Yes Vital Signs Vital Signs Date Time Temp Pulse Resp B/P (MAP) Pulse Ox O2 Delivery O2 Flow Rate FiO2 07/19/20 11:20 Room Air 07/19/20 11:00 97.9 67 16 158/83 (108) 95 97.9 07/18/20 15:02 2 Lab Results Laboratory Tests Test 07/18/20 07:54 White Blood Count 9.3 x10^3/uL (4.0-11.0) Red Blood Count 4.73 x10^6/uL (4.30-5.70) Hemoglobin 14.6 g/dL (13.0-17.5) Hematocrit 43.4 % (39.0-53.0) Mean Corpuscular Volume 92 fL (79-100) Mean Corpuscular Hemoglobin 31 pg (25-35) Mean Corpuscular Hemoglobin Concent 34 g/dL (31-37) Red Cell Distribution Width 14.2 % (11.5-14.5) Platelet Count 135 x10^3/uL (140-400) Neutrophils (%) (Auto) 79 % (31-73) Lymphocytes (%) (Auto) 12 % (24-48) Monocytes (%) (Auto) 9 % (0-9) Eosinophils (%) (Auto) 0 % (0-3) Basophils (%) (Auto) 0 % (0-3) Neutrophils # (Auto) 7.4 x10^3/uL (1.8-7.7) Lymphocytes # (Auto) 1.1 x10^3/uL (1.0-4.8) Monocytes # (Auto) 0.8 x10^3/uL (0.0-1.1) Eosinophils # (Auto) 0.0 x10^3/uL (0.0-0.7) Basophils # (Auto) 0.0 x10^3/uL (0.0-0.2) Sodium Level 136 mmol/L (136-145) Potassium Level 4.4 mmol/L (3.5-5.1) Chloride Level 100 mmol/L (98-107) Carbon Dioxide Level 28 mmol/L (21-32) Anion Gap 8 (6-14) Blood Urea Nitrogen 15 mg/dL (8-26) Creatinine 0.9 mg/dL (0.7-1.3) Estimated GFR (Cockcroft-Gault) 86.1 BUN/Creatinine Ratio 17 (6-20) Glucose Level 133 mg/dL (70-99) Calcium Level 9.3 mg/dL (8.5-10.1) Total Bilirubin 3.9 mg/dL (0.2-1.0) Aspartate Amino Transf (AST/SGOT) 73 U/L (15-37) Alanine Aminotransferase (ALT/SGPT) 108 U/L (16-63) Alkaline Phosphatase 237 U/L (46-116) Total Protein 6.7 g/dL (6.4-8.2) Albumin 2.9 g/dL (3.4-5.0) Albumin/Globulin Ratio 0.8 (1.0-1.7) Amylase Level 71 U/L (25-115) Lipase 525 U/L (73-393) Brief Hospital Course History of Present Illness Patient is a 60-year-old male with past medical history chronic pain on methadone, constipation, who was sent to the ER for further evaluation after he was noted to had elevated liver enzymes. She reports intermittent upper abdominal pain, generalized pruritus, yellowing of his skin and sclera over the past week. He was seen by his PCP for the symptoms 2 days ago and told to report to the ER for his transaminitis and hyperbilirubinemia. Imaging obtained in the ED showed dilated gallbladder with large amount of gallbladder sludge and dilated common bile duct. General surgery was contacted by ED, and patient was recommended to be NPO after midnight for possible surgical procedure. Patient also notes blood in his stool and blood in his urine over the past week. UA on admission is negative for blood but does show large bilirubin. Hemoglobin within normal limits. Will admit patient for further medical management. 07/17: Patient quite tearful during the encounter since he feels like his cat cancer in his quite irritated by the itchiness. GI eap consultant at bedside we have discussed the plan of care in detail greater than 40 minutes were spent in the care of the patient in [id number] contact counseling coordination of care and formulation of the treatment plan 07/18: No acute events reported overnight, case discussed with nursing staff patient in no acute distress no complaints during my visit, he underwent the following procedure Patient: CUCA FINNEY Acct:[id number] Unit: [id number] : 1960 Loc: [address] [place] [address] Room/ Bed: [facility] Age/Sex: 60 / M ADM Status: ADM IN ADM Date: 07/16/20 Operative Note Operative Note Operative Note: Preoperative Diagnosis: Acute cholecystitis Postoperative Diagnosis: Same Procedure: Laparoscopic cholecystectomy with intraoperative cholangiogram Surgeons: Iraj Electrodynamicist: Jose L ESTRADA Anesthesia: Gen. Estimated Blood Loss: 25 mL Specimen: Gallbladder to pathology Drains: None Complications: None Indications: The patient is a 60-year-old male who was admitted with abdominal pain and jaundice. He underwent an ERCP with stone extraction from the common bile duct. The plan is to proceed with a laparoscopic cholecystectomy. The risks of surgery were discussed which include bleeding, infection, bile duct injury, bile leak, pain, the potential for additional surgeries or procedures. The patient understands and would like to proceed. Description: The patient was taken to the operating room and laid supine on the operating table. General anesthesia was performed. The abdomen was prepped with ChloraPrep and draped in a standard surgical fashion. A small incision was made in the right abdomen through which a visualized 5 mm trocar was inserted. Pneumoperitoneum was created and the laparoscope was introduced. In the upper midabdomen an 11 mm trocar was inserted and in the right upper quadrant one 5 mm trocar and one 2.3 mm mini lap grasper were inserted. The gallbladder was inflamed consistent with acute cholecystitis. Multiple adhesions were freed off the anterior wall of the gallbladder. The gallbladder was retracted cephalad. The cystic duct was dissected free from surrounding tissues. One clip was pl aced on the duct near the gallbladder junction. An opening was made in the duct and a cholangiocatheter placed within and secured with a clip. Using contrast dye and fluoroscopy an intraoperative cholangiogram was performed that appeared unremarkable. The clip and catheter were then withdrawn. Three clips were placed on the cystic duct and it was divided. The cystic artery was then identified, dissected free, doubly clipped and divided as well. The gallbladder was then mobilized away from the liver with cautery. The gallbladder was then placed in an endoscopic bag and extracted at the superior trocar site. The fascia there was closed with an 0 PDS sutures. All blood and irrigation fluid was suctioned and hemostasis was good. The remaining ports were removed and the pneumoperitoneum was relieved. The skin incisions were injected with half percent Marcaine with epinephrine, and all were closed using 4-0 Monocryl suture. Steri-Strips and dressings were then applied. The patient tolerated the procedure well and was sent to the recovery room in stable condition. At the end of the case all counts were correct. 07/19/: Patient with no acute events reported overnight. Discussed with surgical coordinator from their standpoint of view the patient is ready to be discharged home. No concerns were voiced prior to discharge and I have provided for pain medications and nausea medications. Follow-up with surgery in 2 weeks Assessment Assessment Images CT abdomen/pelvis with contrast 07/16/2020 2:21 PM INDICATION: Abdominal pain, rectal bleeding and jaundice. COMPARISON: CT abdomen/pelvis 09/30/2018 TECHNIQUE: Multiple axial CT images of the abdomen and pelvis were obtained after the intravenous administration of nonionic contrast. Coronal and sagittal reformats are provided. FINDINGS: There is subsegmental atelectasis at the lung bases. Mild coronary artery vascular calcifications. Hypoattenuation of the hepatic parenchyma is suggestive of hepatic steatosis. Gallbladder is distended measuring 4.5 cm in diameter. Calcifications within the spleen likely represent sequela prior granulomatous exposure. Adrenal glands are normal in appearance. Mild fatty atrophy of the pancreas. Common bile duct is dilated measuring 10 mm, previously measuring up to 4 mm. No dilatation of main pancreatic duct. The abdominal aorta is normal in course and caliber. There are no pathologically enlarged lymph nodes in the abdomen and pelvis. There is no abdominal free fluid. There is no free intraperitoneal air. The kidneys enhance symmetrically. There is no suspicious renal mass. There is no hydronephrosis. There are no suspected calculi within the kidneys, ureters or urinary bladder. Urinary bladder is within normal limits given degree of distention. Prostate and seminal vesicles are normal in appearance. There are multifocal areas of under distention involving the colon, limiting evaluation. Appendix is normal in appearance. No bowel obstruction or inflammation. No suspicious osseous abnormality is identified. IMPRESSION: 1. There is dilatation of the common bile duct without definite obstructive etiology identified on this examination. Consideration may be on for sludge, stricture or choledocholithiasis. Further characterization with MRCP could be of benefit. 2. Mild distention of the gallbladder without calcified gallstones. 3. Mild bibasilar subsegmental atelectasis. INDICATION : Reason: RUQ pain gallstones on Ct / Spl. Instructions: / History: COMPARISON: CT from earlier same day TECHNIQUE: Multiple ultrasound images obtained through the abdomen in grayscale and color. FINDINGS: Liver: Echogenic Gallbladder: Dilated with echogenic material within. There may be some vascular flow within the lumen. IVC: Largely obscured by overlying structures. Common Bile Duct: 9 mm Pancreas: Largely obscured by overlying structures. Right Kidney: No hydronephrosis. IMPRESSION: * Dilated gallbladder is identified. Would correlate for possible causes such as hydrops. Within the gallbladder lumen there is a large amount of echogenic material seen with some possible internal vascularity. This could be secondary to a large amount of gallbladder sludge but would consider obtaining a nonemergent MRI with and without contrast to ensure that there is not a solid lesion within the gallbladder contributing. * Dilation of the common bile duct. * Liver is echogenic. Nonspecific but can be seen with fatty infiltration. Discharge Information Condition at Discharge: Improved Follow Up: Weeks Disposition/Orders: D/C to Home (2 weeks with Surgery) Scheduled Methadone Hcl (Methadone Hcl) 10 Mg Tablet, 10 MG PO BID, (Reported) Entered as Reported by: BRAYDEN SAAVEDRA on 11/09/16 0731 Ondansetron Hcl (Zofran) 4 Mg Tablet, 1 TAB PO Q6HRS for nausea, #20 Prescribed by: MAYANK ARITA MD on 07/19/20 1135 Scheduled PRN Oxycodone/Apap 5-325 (Percocet 5-325 Mg Tablet ) 1 Each Tablet, 1 TAB PO PRN Q6HRS PRN for SEVERE PAIN for 3 Days, #12 Prescribed by: MAYANK ARITA MD on 07/19/20 1135 Justicifation of Admission Dx: Justifications for Admission: Justification of Admission Dx: Yes MAYANK ARITA MD Jul 19, 2020 11:39
--- NOTE | 2020-07-19 12:12 | PDOC ---
PROGRESS NOTES Date of Service DATE: 07/19/20 TIME: 12:11 Subjective Subjective feels well, wants to go home Objective Objective Vital Signs Date Time Temp Pulse Resp B/P (MAP) Pulse Ox O2 Delivery O2 Flow Rate FiO2 07/19/20 11:20 Room Air 07/19/20 11:00 97.9 67 16 158/83 (108) 95 97.9 07/18/20 15:02 2 Intake and Output 07/19/20 07:00 Intake Total 3160 ml Output Total 1135 ml Balance 2025 ml Intake Oral 760 ml IV Total 2400 ml Output Urine Total 1125 ml Estimated Blood Loss 10 ml # Voids 1 # Bowel Movements 2 Physical Exam Abdomen: Soft Assessment Assessment Problems Medical Problems: (1) Choledocholithiasis Status: Acute (2) Elevated bilirubin Status: Acute (3) Transaminitis Status: Acute Plan Plan of Care POD 1 yadi garcia ok to discharge, FU in 2 weeks in office Comment Review of Relevant I have reviewed the following items john (where applicable) has been applied. Labs Laboratory Tests Test 07/18/20 07:54 White Blood Count 9.3 x10^3/uL (4.0-11.0) Red Blood Count 4.73 x10^6/uL (4.30-5.70) Hemoglobin 14.6 g/dL (13.0-17.5) Hematocrit 43.4 % (39.0-53.0) Mean Corpuscular Volume 92 fL (79-100) Mean Corpuscular Hemoglobin 31 pg (25-35) Mean Corpuscular Hemoglobin Concent 34 g/dL (31-37) Red Cell Distribution Width 14.2 % (11.5-14.5) Platelet Count 135 x10^3/uL (140-400) Neutrophils (%) (Auto) 79 % (31-73) Lymphocytes (%) (Auto) 12 % (24-48) Monocytes (%) (Auto) 9 % (0-9) Eosinophils (%) (Auto) 0 % (0-3) Basophils (%) (Auto) 0 % (0-3) Neutrophils # (Auto) 7.4 x10^3/uL (1.8-7.7) Lymphocytes # (Auto) 1.1 x10^3/uL (1.0-4.8) Monocytes # (Auto) 0.8 x10^3/uL (0.0-1.1) Eosinophils # (Auto) 0.0 x10^3/uL (0.0-0.7) Basophils # (Auto) 0.0 x10^3/uL (0.0-0.2) Sodium Level 136 mmol/L (136-145) Potassium Level 4.4 mmol/L (3.5-5.1) Chloride Level 100 mmol/L (98-107) Carbon Dioxide Level 28 mmol/L (21-32) Anion Gap 8 (6-14) Blood Urea Nitrogen 15 mg/dL (8-26) Creatinine 0.9 mg/dL (0.7-1.3) Estimated GFR (Cockcroft-Gault) 86.1 BUN/Creatinine Ratio 17 (6-20) Glucose Level 133 mg/dL (70-99) Calcium Level 9.3 mg/dL (8.5-10.1) Total Bilirubin 3.9 mg/dL (0.2-1.0) Aspartate Amino Transf (AST/SGOT) 73 U/L (15-37) Alanine Aminotransferase (ALT/SGPT) 108 U/L (16-63) Alkaline Phosphatase 237 U/L (46-116) Total Protein 6.7 g/dL (6.4-8.2) Albumin 2.9 g/dL (3.4-5.0) Albumin/Globulin Ratio 0.8 (1.0-1.7) Amylase Level 71 U/L (25-115) Lipase 525 U/L (73-393) Medications Current Medications Aspirin (Yipit Aspirin) 325 mg 1X ONCE PO Last administered on 07/16/20at 13:39; Start 07/16/20 at 13:15; Stop 07/16/20 at 13:16; Status DC Nitroglycerin (Nitrostat) 0.4 mg PRN Q5MIN PRN SL CP RATING > 1/10 Last administered on 07/16/20at 13:40; Start 07/16/20 at 13:15; Stop 07/17/20 at 13:14; Status DC Morphine Sulfate (Morphine Sulfate) 2 mg PRN Q15MIN PRN IV/SQ PAIN GREATER THAN 3/10 Last administered on 07/16/20at 13:41; Start 07/16/20 at 13:15; Stop 07/17/20 at 11:46; Status DC Diphenhydramine HCl (Benadryl) 25 mg 1X ONCE IVP Last administered on 07/16/20at 13:39; Start 07/16/20 at 13:45; Stop 07/16/20 at 13:46; Status DC Iohexol (Omnipaque 300 Mg/ml) 75 ml 1X ONCE IV Last administered on 07/16/20at 14:37; Start 07/16/20 at 14:30; Stop 07/16/20 at 14:31; Status DC Info (CONTRAST GIVEN -- Rx MONITORING) 1 each PRN DAILY PRN MC SEE COMMENTS; Start 07/16/20 at 14:30; Stop 07/18/20 at 14:29; Status DC Sodium Chloride 1,000 ml @ 1,000 mls/hr 1X ONCE IV Last administered on 07/16/20at 16:01; Start 07/16/20 at 16:00; Stop 07/16/20 at 16:59; Status DC Hydroxyzine HCl (Atarax) 25 mg 1X STAT PO Last administered on 07/16/20at 17:46; Start 07/16/20 at 17:08; Stop 07/16/20 at 17:10; Status DC Sodium Chloride 1,000 ml @ 1,000 mls/hr 1X ONCE IV Last administered on 07/16/20at 17:46; Start 07/16/20 at 17:15; Stop 07/16/20 at 18:14; Status DC Morphine Sulfate (Morphine Sulfate) 4 mg PRN Q2HRS PRN IV PAIN Last administered on 07/19/20at 04:37; Start 07/16/20 at 17:30 Diphenhydramine HCl (Benadryl) 50 mg PRN Q6HRS PRN IVP ITCHING Last administered on 07/17/20at 09:29; Start 07/16/20 at 17:30; Stop 07/17/20 at 09:35; Status DC Cholestyramine Resin (Questran Light) 4 gm PRN BID PRN PO ITCHING; Start 07/16/20 at 17:30 Ondansetron HCl (Zofran) 4 mg PRN Q8HRS PRN IV NAUSEA/VOMITING; Start 07/16/20 at 18:30; Stop 07/17/20 at 11:47; Status DC Fentanyl Citrate (Fentanyl 2ml Vial) 50 mcg PRN Q1HR PRN IV PAIN Last administered on 07/17/20at 03:10; Start 07/16/20 at 18:30; Stop 07/17/20 at 18:29; Status DC Sodium Chloride 1,000 ml @ 125 mls/hr 1X ONCE IV Last administered on 07/16/20at 21:10; Start 07/16/20 at 18:30; Stop 07/17/20 at 02:29; Status DC Ondansetron HCl (Zofran) 4 mg PRN Q6HRS PRN IVP NAUSEA/VOMITING Last administered on 07/16/20at 21:13; Start 07/16/20 at 19:00 Al Hydroxide/Mg Hydroxide (Mylanta Plus Xs) 30 ml PRN Q3HRS PRN PO HEARTBURN / GAS; Start 07/16/20 at 19:00 Calcium Carbonate/ Glycine (Tums) 500 mg PRN Q3HRS PRN PO UPSET STOMACH; Start 07/16/20 at 19:00 Zolpidem Tartrate (Ambien) 5 mg PRN QHS PRN PO INSOMNIA, MAY REPEAT IN 1HR Last administered on 07/18/20at 20:53; Start 07/16/20 at 19:00 Magnesium Hydroxide (Milk Of Magnesia) 2,400 mg PRN Q12HR PRN PO CONSTIPATION; Start 07/16/20 at 19:00 Bisacodyl (Dulcolax Supp) 10 mg PRN DAILY PRN ND CONSTIPATION; Start 07/16/20 at 19:00 Heparin Sodium (Porcine) (Heparin Sodium) 5,000 unit Q8HRS SQ Last administered on 07/17/20at 20:17; Start 07/16/20 at 22:00 Pantoprazole Sodium (PROTONIX VIAL for IV PUSH) 40 mg DAILYAC IVP Last administered on 07/19/20at 07:32; Start 07/17/20 at 10:00 Hydroxyzine HCl (Atarax) 25 mg PRN Q6HRS PRN PO ITCHING Last administered on 07/17/20at 20:15; Start 07/17/20 at 09:30 Naloxone HCl (Narcan) 0.4 mg PRN Q2HRS PRN IV SEE COMMENTS; Start 07/17/20 at 09:30 Zinc Acetate/ Diphenhydramine (Benadryl Topical) 1 marylou PRN Q4HRS PRN TP pruritus Last administered on 07/18/20at 10:18; Start 07/17/20 at 09:45 Sodium Chloride 1,000 ml @ 75 mls/hr [id number] IV Last administered on 07/19/20at 04:32; Start 07/17/20 at 12:00 Iohexol (Omnipaque 300 Mg/ml) 100 ml STK-MED ONCE .ROUTE ; Start 07/17/20 at 13:37; Stop 07/17/20 at 13:37; Status DC Ringer's Solution 1,000 ml @ 50 mls/hr Q20H IV Last administered on 07/17/20at 15:21; Start 07/17/20 at 14:15; Stop 07/18/20 at 02:14; Status DC Ondansetron HCl (Zofran) 4 mg STK-MED ONCE .ROUTE ; Start 07/17/20 at 15:37; Stop 07/17/20 at 15:38; Status DC Propofol (Diprivan) 200 mg STK-MED ONCE IV ; Start 07/17/20 at 15:37; Stop 07/17/20 at 15:38; Status DC Lidocaine HCl (Lidocaine Pf 2% Vial) 5 ml STK-MED ONCE .ROUTE ; Start 07/17/20 at 15:37; Stop 07/17/20 at 15:38; Status DC Dexamethasone Sodium Phosphate (Decadron) 4 mg STK-MED ONCE .ROUTE ; Start 07/17/20 at 15:37; Stop 07/17/20 at 15:38; Status DC Sevoflurane (Ultane) 30 ml STK-MED ONCE IH ; Start 07/17/20 at 15:37; Stop 07/17/20 at 15:38; Status DC Glycopyrrolate (Robinul) 1 mg STK-MED ONCE .ROUTE ; Start 07/17/20 at 15:38; Stop 07/17/20 at 15:38; Status DC Neostigmine [place] (Neostigmine Methylsulfate) 5 mg STK-MED ONCE .ROUTE ; Start 07/17/20 at 15:38; Stop 07/17/20 at 15:38; Status DC Rocuronium [place] (Zemuron) 50 mg STK-MED ONCE .ROUTE ; Start 07/17/20 at 15:38; Stop 07/17/20 at 15:39; Status DC Phenylephrine HCl (PHENYLEPHRINE in 0.9% NACL PF) 1 mg STK-MED ONCE IV ; Start 07/17/20 at 15:39; Stop 07/17/20 at 15:39; Status DC Ciprofloxacin/ Dextrose 200 ml @ 200 mls/hr Q12HR IV Last administered on 07/19/20at 08:13; Start 07/17/20 at 18:00 Fentanyl Citrate (Fentanyl 2ml Vial) 25 mcg PRN Q5MIN PRN IVP MILD PAIN 1-3; Start 07/18/20 at 10:45; Stop 07/19/20 at 10:44; Status DC Fentanyl Citrate (Fentanyl 2ml Vial) 50 mcg PRN Q5MIN PRN IVP MODERATE PAIN 4- 6; Start 07/18/20 at 10:45; Stop 07/19/20 at 10:44; Status DC Morphine Sulfate (Morphine Sulfate) 1 mg PRN Q10MIN PRN IVP SEVERE PAIN 7-10; Start 07/18/20 at 10:45; Stop 07/19/20 at 10:44; Status DC Ringer's Solution 1,000 ml @ 30 mls/hr Q24H IV Last administered on 07/18/20at 14:24; Start 07/18/20 at 10:45; Stop 07/18/20 at 22:44; Status DC Hydromorphone HCl (Dilaudid) 0.5 mg PRN Q10MIN PRN IVP SEVERE PAIN 7-10, 2nd CHOICE; Start 07/18/20 at 10:45; Stop 07/19/20 at 10:44; Status DC Prochlorperazine Edisylate (Compazine) 5 mg PACU PRN PRN IVP NAUSEA, MRX1; Start 07/18/20 at 10:45; Stop 07/19/20 at 10:44; Status DC Propofol (Diprivan) 200 mg STK-MED ONCE IV ; Start 07/18/20 at 11:52; Stop 07/18/20 at 11:52; Status DC Lidocaine HCl (Lidocaine Pf 2% Vial) 5 ml STK-MED ONCE .ROUTE ; Start 07/18/20 at 11:52; Stop 07/18/20 at 11:52; Status DC Dexamethasone Sodium Phosphate (Decadron) 20 mg STK-MED ONCE .ROUTE ; Start 07/18/20 at 11:52; Stop 07/18/20 at 11:52; Status DC Ondansetron HCl (Zofran) 4 mg STK-MED ONCE .ROUTE ; Start 07/18/20 at 11:52; Stop 07/18/20 at 11:52; Status DC Rocuronium [place] (Zemuron) 50 mg STK-MED ONCE .ROUTE ; Start 07/18/20 at 11:52; Stop 07/18/20 at 11:53; Status DC Fentanyl Citrate (Fentanyl 2ml Vial) 100 mcg STK-MED ONCE .ROUTE ; Start 07/18/20 at 11:53; Stop 07/18/20 at 11:53; Status DC Iohexol (Omnipaque 300 Mg/ml) 50 ml STK-MED ONCE .ROUTE Last administered on 07/18/20at 13:00; Start 07/18/20 at 12:10; Stop 07/18/20 at 12:10; Status DC Cellulose (Surgicel Hemostat 4x8) 1 each STK-MED ONCE .ROUTE Last administered on 07/18/20at 13:00; Start 07/18/20 at 12:10; Stop 07/18/20 at 12:10; Status DC Bupivacaine HCl (Sensorcaine Mpf 0.5%) 30 ml STK-MED ONCE .ROUTE Last administered on 07/18/20at 13:00; Start 07/18/20 at 12:10; Stop 07/18/20 at 12:10; Status DC Succinylcholine Chloride (Anectine) 200 mg STK-MED ONCE .ROUTE ; Start 07/18/20 at 12:22; Stop 07/18/20 at 12:22; Status DC Glycopyrrolate (Robinul) 1 mg STK-MED ONCE .ROUTE ; Start 07/18/20 at 12:23; Stop 07/18/20 at 12:24; Status DC Neostigmine [place] (Neostigmine Methylsulfate) 5 mg STK-MED ONCE .ROUTE ; Start 07/18/20 at 12:24; Stop 07/18/20 at 12:24; Status DC Phenylephrine HCl (PHENYLEPHRINE in 0.9% NACL PF) 1 mg STK-MED ONCE IV ; Start 07/18/20 at 13:17; Stop 07/18/20 at 13:17; Status DC Oxycodone/ Acetaminophen (Percocet 5/325) 1 tab PRN Q4HRS PRN PO MODERATE PAIN Last administered on 07/18/20at 18:02; Start 07/18/20 at 14:30 Oxycodone/ Acetaminophen (Percocet 5/325) 2 tab PRN Q4HRS PRN PO SEVERE PAIN Last administered on 07/19/20at 11:20; Start 07/18/20 at 14:45 Active Scripts Active Zofran (Ondansetron Hcl) 4 Mg Tablet 1 Tab PO Q6HRS Percocet 5-325 Mg Tablet (Oxycodone/Acetaminophen) 1 Each Tablet 1 Tab PO PRN Q6HRS PRN 3 Days Reported Methadone Hcl 10 Mg Tablet 10 Mg PO BID Vitals/I & O Vital Sign - Last 24 Hours 07/18/20 07/18/20 07/18/20 07/18/20 12:26 12:33 14:29 14:29 Temp 98.4 98.4 98.4 98.4 Pulse 91 91 76 Resp 20 20 B/P (MAP) 134/78 123/57 Pulse Ox 98 98 100 O2 Delivery Room Air Mask Simple Mask O2 Flow Rate 3 10 10 07/18/20 07/18/20 07/18/20 07/18/20 14:32 14:47 14:57 15:00 Temp 97.2 97.2 Pulse 81 83 89 Resp 20 20 18 B/P (MAP) 133/64 157/72 137/76 (96) Pulse Ox 95 97 97 O2 Delivery Simple Mask Simple Mask Mask Nasal Cannula O2 Flow Rate 10 10 10 2.0 07/18/20 07/18/20 07/18/20 07/18/20 15:02 17:00 17:30 18:02 Temp 97.3 97.3 Pulse 78 Resp 20 B/P (MAP) 132/76 Pulse Ox 96 O2 Delivery Nasal Cannula Nasal Cannula Room Air Nasal Cannula O2 Flow Rate 2 07/18/20 07/18/20 07/18/20 07/18/20 19:00 19:00 19:00 20:53 Temp 98.4 98.4 Pulse 104 Resp 16 18 19 B/P (MAP) 139/77 (97) Pulse Ox 95 95 O2 Delivery Room Air Room Air Room Air Room Air 07/18/20 07/18/20 07/18/20 07/18/20 21:30 22:50 23:00 23:50 Temp 98.2 98.2 Pulse 98 Resp 16 16 20 16 B/P (MAP) 154/80 (104) Pulse Ox 99 O2 Delivery Room Air Room Air Room Air Room Air 07/19/20 07/19/20 07/19/20 07/19/20 02:43 03:00 03:40 04:37 Temp 98.1 98.1 Pulse 80 Resp 17 20 17 17 B/P (MAP) 160/77 (104) Pulse Ox 95 O2 Delivery Room Air Room Air Room Air Room Air 07/19/20 07/19/20 07/19/20 07/19/20 05:06 07:00 07:32 08:00 Temp 98.3 98.3 Pulse 84 Resp 18 20 B/P (MAP) 173/93 (119) Pulse Ox 94 O2 Delivery Room Air Room Air Room Air Room Air 07/19/20 07/19/20 07/19/20 09:41 11:00 11:20 Temp 97.9 97.9 Pulse 67 Resp 16 B/P (MAP) 158/83 (108) Pulse Ox 95 O2 Delivery Room Air Room Air Room Air Intake and Output 07/18/20 07/18/20 07/19/20 15:00 23:00 07:00 Intake Total 1000 ml 800 ml 1360 ml Output Total 160 ml 975 ml Balance 840 ml 800 ml 385 ml Justifications for Admission Other Justification Dilated common bile duct, transaminitis BRYSON CARVAJAL MD Jul 19, 2020 12:12
--- NOTE | 2020-07-19 13:50 | NUR ---
Discharge Note: CUCA FINNEY Discharge instructions and discharge home medications reviewed with Patient and a copy given. All questions have been answered and understanding verbalized. The following instructions and handouts were given: Patient given education regarding new medication and follow up. Discontinued lines and drains: Iv removed per protocol. Patient discharged home, picked up by .
--- NOTE | 2020-07-22 15:13 | PATHOLOGY ---
[facility] Accession Number: [id number] . 01 Material submitted: . gallbladder - GALLBLADDER . 01 Clinical history: . LAPAROSCOPIC CHOLECYSTECTOMY . 02 Diagnosis: Gallbladder, laparoscopic cholecystectomy: - Cholelithiasis. - Chronic cholecystitis (JPM:shahla; 07/22/2020) S 07/22/2020 1334 Local . 02 Comment: There is no evidence of malignancy. (JPM:shahla; 07/22/2020) . 02 Electronically signed: . Tejas Gan MD, Pathologist NPI- [id number] . 01 Gross description: . The specimen is received in formalin, labeled "Ayo Byrne Sr., gallbladder". Received is an intact gallbladder measuring 17.2 x 5.1 x 4.7 cm in greatest dimensions displaying a bile-stained serosal surface. Opening the specimen reveals a velvety, bile-stained mucosa with a gallbladder wall thickness of 0.1 cm. Calculi are present displaying a black and granular appearance, and no masses or lesions are noted grossly. Mining Engineering Technologist sections, to include the proximal margin, are submitted in cassette A1. (CAA; 07/21/2020) QAC/QAC 07/22/2020 1333 Local . 02 Pathologist provided ICD-10: K80.10 . 02 CPT . 009235 Specimen Comment: A courtesy copy of this report has been sent to [phone] Specimen Comment: Report sent to Performed at: 01 [facility] [address], [place] [id number] MD Harry Magana MD Phone: [phone] Performed at: 02 [facility] [id number] MD Tejas Gan MD Phone: [phone]
[2020-07-23 10:17] LABS: HCV ULTRA QUANT PCR 876000 IU/mL (.)
== END 2020-07-19 13:45 | disposition home or self-care (01) | DRG 410 ==
LOC: ER 12:30 → ED HOLD 17:19 → 5 NORTH 20:43
PROVIDERS: ADMIT Family Medicine; ATTEND Family Medicine
PROC: 0FC98ZZ Extirpation of Matter from Common Bile Duct, Via Natural or Artificial Opening Endoscopic (ICD-10-PCS; 2020-07-17)
PROC: 0FC88ZZ Extirpation of Matter from Cystic Duct, Via Natural or Artificial Opening Endoscopic (ICD-10-PCS; 2020-07-17)
PROC: 0FC48ZZ Extirpation of Matter from Gallbladder, Via Natural or Artificial Opening Endoscopic (ICD-10-PCS; 2020-07-17 16:00)
PROC: BF101ZZ Fluoroscopy of Bile Ducts using Low Osmolar Contrast (ICD-10-PCS; 2020-07-18)
PROC: 0FT44ZZ Resection of Gallbladder, Percutaneous Endoscopic Approach (ICD-10-PCS; principal; 2020-07-18 14:00)
DX: K80.63 Calculus of gallbladder and bile duct with acute cholecystitis with obstruction (principal); Z79.891 Long term (current) use of opiate analgesic; Z87.891 Personal history of nicotine dependence; E66.3 Overweight; F32.9 Major depressive disorder, single episode, unspecified; F41.9 Anxiety disorder, unspecified; G89.29 Other chronic pain; K59.00 Constipation, unspecified; K76.0 Fatty (change of) liver, not elsewhere classified; K82.8 Other specified diseases of gallbladder; K86.89 Other specified diseases of pancreas; L29.9 Pruritus, unspecified; Z80.9 Family history of malignant neoplasm, unspecified; R07.89 Other chest pain; Z88.0 Allergy status to penicillin; Z68.30 Body mass index [BMI] 30.0-30.9, adult; Z20.822 Contact with and (suspected) exposure to COVID-19; K21.9 Gastro-esophageal reflux disease without esophagitis
CPT/HCPCS: 36415; 43262; 43264; 43274; 71045; 74177; 74300; 74330; 76705; 80053; 80307; 81001; 82150; 83690; 83735; 83880; 84484; 85007; 85025; 85379; 85610; 86705; 86709; 86803; 87340; 87426; 87522; 88304; 93005; 96361; 96374; 96375; 99285; C1769; C9113; J0330; J0744; J1100; J1200; J1644; J2270; J2370; J2405; J2704; J2710; J3010; J3490; J7030; J7120; Q9967; U0003; G0378